=== PATIENT | male | born 1950 | race Caucasian/White ===

== ENCOUNTER 2016-11-18 18:11 | Emergency (ER) | payer MEDICARE, BC ==
[2016-11-18] MEDS ORDERED: ONDANSETRON 4 MG ORAL DISINTEGRATING TAB (S0181) As Ordered ONE (19:14)
[2016-11-18] MEDS ORDERED: PERCOCET 5MG/325MG TAB As Ordered ONE (19:14)
[2016-11-18] MEDS ORDERED: OXYCODONE/APAP 5MG/325MG(BULK) 1 TAB TAB As Ordered ONE (20:26)
--- NOTE | 2016-11-18 20:38 | EDDOCDS ---
Physician Documentation [facility] Name: Robby Saleh Age: 66 yrs Sex: Male : 1950 Arrival Date: 11/18/2016 Time: 18:11 Bed Private MD: Ashley Lambert Disposition: 11/18/16 20:22 Discharged to Home/Self Care. Impression: Nondisplaced fracture of left radial styloid process, Fall (on) (from) other stairs and steps, Contusion of left knee. - Condition is Stable. - Discharge Instructions: Cast or Splint Care, Wrist Fracture, Knee Pain. - Prescriptions for Percocet 5- 325 mg Oral Tablet - take 1 tablet by ORAL route every 6 hours As needed MDD: 4 tabs; 12 tablet. - Medication Reconciliation, Local Pharmacy Hours form. - Follow up: Emergency Department; When: As needed. Follow up: Ashley Lambert; When: Call to arrange an appointment; Reason: Wound/Symptom Recheck, Recheck today's complaints, Continuance of care. Follow up: [facility] ([facility]); When: Call to arrange an appointment; Reason: Wound/Symptom Recheck, Recheck today's complaints, Continuance of care. - Problem is new. - Symptoms have improved. Historical: - Allergies: no known allergies; - Home Meds: 1. atorvastatin 40 mg oral tab 1 tab nightly (Last dose: 11/17/2016) 2. Ramipril Unknown Oral 1 cap nightly (Last dose: 11/17/2016) 3. unknown blood thinner nightly (Last dose: 11/17/2016) 4. Vitamin D Oral nightly (Last dose: 11/17/2016) 5. vitamin E Oral nightly (Last dose: 11/17/2016) - PMHx: [place], 2012; Hypercholesterolemia; Hypertension; Pre Diabetic; - PSHx: Right knee replacement; Lithotripsy; Vasectomy; Left Hip Replacement; - Social history: Smoking status: Patient states was never smoker of tobacco. No barriers to communication noted. - Family history: Not pertinent. - : The pt / caregiver states he / she is on anticoagulants: unknonw Home medication list is obtained from the patient. - Exposure Risk Screening:: None identified. Vital Signs: 11/18 18:12 BP 158 / 101; Pulse 108; Resp 16; Temp 98.7; Pulse Ox 99% on R/A; Weight 99.79 kg / 220 elp lbs (R); Height 5 ft. 11 in. (180.34 cm) (R); Pain 8/10; 18:12 Body Mass Index 30.68 (99.79 kg, 180.34 cm) elp Procedures: 20:20 Fracture care/splinting: (Stabilizing Care) Splint applied to left wrist using katharine cc10 wrap, Orthoglass splint, applied by myself. Examined by me, post splint application: neurovascular intact, 2+ distal pulses palpable, brisk capillary refill noted, Patient tolerated well. MDM: 19:11 Ondansetron ODT Oral Disintegrating Tablet 4 mg PO once ordered. cc10 19:11 oxyCODONE-acetaminophen 5 mg-325 mg 1 tabs PO once ordered. cc10 19:12 Wrist, Complete Ordered. EDMS 19:12 Knee, Complete Ordered. EDMS 19:12 Hip, (AP/Lat) Ordered. EDMS 20:19 Knee Immobilizer ordered. cc10 20:19 oxyCODONE-acetaminophen 4 pack 5 mg-325 mg 1 packets PO once; Dispense with pt, take as cc10 per instruction on package ordered. 20:20 Misc. Nursing Order ordered. cc10 Administered Medications: 19:17 Drug: Ondansetron ODT 4 mg [ondansetron 4 mg disintegrating tablet (1 tabs)] Route: PO; cz 19:17 Drug: oxyCODONE-acetaminophen 1 tabs [oxycodone-acetaminophen 5 mg-325 mg tablet (1 cz tabs)] Route: PO; 20:36 Drug: oxyCODONE-acetaminophen 4 pack 1 packets [oxycodone-acetaminophen 5 mg-325 mg cjh tablet (1 tabs)] {Co-Signature: ms18 (Rea Johnson RN).} Route: PO; Signatures: Dispatcher [employer] EDMS Grzegorz Bobby RN RN cz Hafner, Jane, RN RN Travis Lockhart PADeonC PADeonC cc10 Rea Johnson RN ms18 MTDD
--- NOTE | 2016-11-18 20:38 | EDDOCDS ---
Nurse's Notes [facility] Name: Robby Saleh Age: 66 yrs Sex: Male : 1950 Arrival Date: 11/18/2016 Time: 18:11 Bed PR Private MD: Ashley Lambert Diagnosis: Fall (on) (from) other stairs and steps;Nondisplaced fracture of left radial styloid process;Contusion of left knee Presentation: 11/18 18:20 Presenting complaint: Patient states: tripped on stairs and hyperextended left knee, cj sprained right ankle, and hurt left wrist, and worried about left hip which was replaced two years ago. Adult Sepsis Screening: The patient does not have new or worsening altered mentation. Patient's respiratory rate is less than 22. Systolic blood pressure is greater than 100. Patient has a qSOFA score of 0- Negative Sepsis Screen. Suicide/Homicide risk assessment- the patient denies having any suicidal and/or homicidal ideations and does not present with any other emotional, behavioral or mental health complaints. Status: Patient is not a medical service technician or dependent. Transition of care: patient was not received from another setting of care. 18:20 Acuity: OLU Level 4 [facility] 18:20 Method Of Arrival: Walkin/Carried/Asstd [facility] Triage Assessment: 18:29 General: Appears in no apparent distress, comfortable, Behavior is appropriate for age, [facility] cooperative. Pain: Location: left knee Pain currently is 8 out of 10 on a pain scale. Respiratory: Airway is patent Respiratory effort is even, unlabored, Respiratory pattern is regular, symmetrical. Musculoskeletal: Range of motion limited in left knee. Historical: - Allergies: no known allergies; - Home Meds: 1. atorvastatin 40 mg oral tab 1 tab nightly (Last dose: 11/17/2016) 2. Ramipril Unknown Oral 1 cap nightly (Last dose: 11/17/2016) 3. unknown blood thinner nightly (Last dose: 11/17/2016) 4. Vitamin D Oral nightly (Last dose: 11/17/2016) 5. vitamin E Oral nightly (Last dose: 11/17/2016) - PMHx: [place], 2012; Hypercholesterolemia; Hypertension; Pre Diabetic; - PSHx: Right knee replacement; Lithotripsy; Vasectomy; Left Hip Replacement; - Social history: Smoking status: Patient states was never smoker of tobacco. No barriers to communication noted. - Family history: Not pertinent. - : The pt / caregiver states he / she is on anticoagulants: unknonw Home medication list is obtained from the patient. - Exposure Risk Screening:: None identified. Screenin:20 Screening information is obtained from the patient. Fall risk: No risks identified. cz Assistance ADL's: requires no assistance with activities of daily living. Abuse/DV Screen: The patient / caregiver reports he/she is: not in a situation that causes fear, pain or injury. Nutritional screening: No deficits noted. home support is adequate. 20:34 Advance Directives: There is no active DNR order. [facility] Assessment: 19:18 General: alert male with left side wrist knee and hip pain s/p fall. Musculoskeletal: cz Reports. 20:34 General: Appears in no apparent distress, comfortable, Behavior is appropriate for age, cj cooperative. Pain: Location: left leg. Neurological: Level of Consciousness is awake, alert, Oriented to person, place, time. Respiratory: No deficits noted. Derm: Skin is pink, warm & dry. Musculoskeletal: knee immobilizer applied to left knee. Vital Signs: 18:12 BP 158 / 101; Pulse 108; Resp 16; Temp 98.7; Pulse Ox 99% on R/A; Weight 99.79 kg (R); elp Height 5 ft. 11 in. (180.34 cm) (R); Pain 8/10; 18:12 Body Mass Index 30.68 (99.79 kg, 180.34 cm) [facility] Vitals: 18:12 Log In Time: November 18, 2016 at 18:10. [facility] ED Course: 18:12 Patient visited by Perla Alonzo PCA. elp 18:12 Ashley Lambert is Private Physician. elp 18:12 Patient moved to Waiting elp 18:14 Patient visited by Perla Alonzo PCA. elp 18:14 Patient moved to Pre RCE elp 18:22 Triage Initiated [facility] 18:30 Affected limb iced. Affected limb elevated. [facility] 18:44 Patient moved to Triage 1 ld5 19:05 Travis Ulrich [facility] cc10 19:05 Caleb Aly DO is Attending Physician. cc10 19:05 Patient visited by Travis Ulrich PA-C. cc10 19:05 Patient visited by Travis Ulrich PA-C. cc10 19:17 Patient moved to TR8 cz 19:19 Patient moved to TR1 jb5 19:20 The patient / caregiver is instructed regarding the plan of care and ED course. cz 19:20 No IV's were initiated during this patient's visit. No procedures done that require cz assistance. 19:36 Patient moved to PR2 / 26 cz 20:04 Patient visited by Val Degroot PCA. jb5 20:21 Ashley Lambert is Referral Physician. cc10 20:21 [facility] ([facility]) is Referral Physician. cc10 Administered Medications: 19:17 Drug: Ondansetron ODT 4 mg [ondansetron 4 mg disintegrating tablet (1 tabs)] Route: PO; cz 19:17 Drug: oxyCODONE-acetaminophen 1 tabs [oxycodone-acetaminophen 5 mg-325 mg tablet (1 cz tabs)] Route: PO; 20:36 Drug: oxyCODONE-acetaminophen 4 pack 1 packets [oxycodone-acetaminophen 5 mg-325 mg cjh tablet (1 tabs)] {Co-Signature: ms18 (Rea Johnson RN).} Route: PO; Order Results: There are currently no results for this order. Outcome: 20:22 Discharge ordered by Provider. cc10 20:34 Discharge Assessment: Patient awake, alert and oriented x 3. No cognitive and/or [facility] functional deficits noted. Patient verbalized understanding of disposition instructions. patient administered narcotics - no. The following High Risk Discharge criteria are identified: None. Discharged to home via wheelchair. Condition: good Condition: stable Condition: improved. Discharge instructions given to patient, Instructed on discharge instructions, follow up and referral plans. medication usage, no driving heavy equipment, Rest, Ice, Compression and Elevation. crutch walking, no drinking with medication, Demonstrated understanding of instructions, crutch walking, medications, Pt was receptive of discharge instructions/ teaching. Prescriptions given X 1. No special radiology studies were completed. Property :Personal belongings accompany Pt. 20:37 Patient left the ED. [facility] Signatures: Grzegorz Bobby, RN RN Val Hickey, EMERGENCY WORKER EMERGENCY WORKER jb5 Fiona Millan,RN RN ld5 Leilani Majano,RN RN [facility] Perla Alonzo, EMERGENCY WORKER EMERGENCY WORKER elp Travis Ulrich, PA-C PA-C cc10 Rea Johnson RN ms18 MTDD
--- NOTE | 2016-11-19 07:35 | REP ---
Left wrist series: Four views. History: Trauma. Findings: There is diffuse osteopenia. There is advanced chronic arthropathy at the wrist with narrowing of the articulation between the capitate and the lunate and marked narrowing of the radioscaphoid articulation. There is widening of the navicular lunate articulation indicating disruption of the navicular lunate ligament. There may be subluxation of the lunate relative to the capitate. In addition, there is erosion of the articular surface of the distal radius with impingement of the navicular bone into the eroded surface of the distal radius. These changes do not appear acute. However, there is an acute appearing disruption of the radial styloid articular margin cortex which may be a nondisplaced fracture. Vascular calcification is seen. There is a small erosion in the distal tip of the ulnar styloid. Impression: 1. 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 2. Question intra-articular nondisplaced fracture of the radial styloid. Diffuse osteoporosis is also noted. Signed by Jatin Mcintosh MD 11/19/2016 08:46 A
--- NOTE | 2016-11-19 07:35 | REP ---
Left hip: Three views. History: Trauma. Findings: Three views of the left hip demonstrate a left hip arthroplasty in position. No fracture or subluxation is seen. There is some soft tissue calcification in the proximal thigh laterally. Impression: Status post left hip arthroplasty. No fracture seen. Signed by Jatin Mcintosh MD 11/19/2016 08:47 A
--- NOTE | 2016-11-19 07:36 | REP ---
Left knee series: Five views. History: Trauma. Findings: Comparison left knee radiographs are from May 10, 2010. There is diffuse osteopenia. Advanced three compartment osteoarthritis is seen. Multiple osteocartilaginous loose bodies are noted at the anterior and posterior joint line. These findings are unchanged. There is evidence of a large joint effusion. No fracture is seen. Impression: No fracture noted. Advanced three compartment osteoarthritis with multiple osteocartilaginous loose bodies and large joint effusion. Diffuse osteoporosis. Signed by Jatin Mcintosh MD 11/19/2016 08:47 A
--- NOTE | 2016-11-22 09:50 | EDDOCDS ---
Physician Documentation [facility] Name: Robby Saleh Age: 66 yrs Sex: Male : 1950 Arrival Date: 11/18/2016 Time: 18:11 Bed Private MD: Ashley Lambert Disposition: 11/18/16 20:22 Discharged to Home/Self Care. Impression: Nondisplaced fracture of left radial styloid process, Fall (on) (from) other stairs and steps, Contusion of left knee. - Condition is Stable. - Discharge Instructions: Cast or Splint Care, Wrist Fracture, Knee Pain. - Prescriptions for Percocet 5- 325 mg Oral Tablet - take 1 tablet by ORAL route every 6 hours As needed MDD: 4 tabs; 12 tablet. - Medication Reconciliation, Local Pharmacy Hours form. - Follow up: Emergency Department; When: As needed. Follow up: Ashley Lambert; When: Call to arrange an appointment; Reason: Wound/Symptom Recheck, Recheck today's complaints, Continuance of care. Follow up: [facility] ([facility]); When: Call to arrange an appointment; Reason: Wound/Symptom Recheck, Recheck today's complaints, Continuance of care. - Problem is new. - Symptoms have improved. Historical: - Allergies: no known allergies; - Home Meds: 1. atorvastatin 40 mg oral tab 1 tab nightly (Last dose: 11/17/2016) 2. Ramipril Unknown Oral 1 cap nightly (Last dose: 11/17/2016) 3. unknown blood thinner nightly (Last dose: 11/17/2016) 4. Vitamin D Oral nightly (Last dose: 11/17/2016) 5. vitamin E Oral nightly (Last dose: 11/17/2016) - PMHx: [place], 2012; Hypercholesterolemia; Hypertension; Pre Diabetic; - PSHx: Right knee replacement; Lithotripsy; Vasectomy; Left Hip Replacement; - Social history: Smoking status: Patient states was never smoker of tobacco. No barriers to communication noted. - Family history: Not pertinent. - : The pt / caregiver states he / she is on anticoagulants: unknonw Home medication list is obtained from the patient. - Exposure Risk Screening:: None identified. Vital Signs: 11/18 18:12 BP 158 / 101; Pulse 108; Resp 16; Temp 98.7; Pulse Ox 99% on R/A; Weight 99.79 kg / 220 elp lbs (R); Height 5 ft. 11 in. (180.34 cm) (R); Pain 8/10; 18:12 Body Mass Index 30.68 (99.79 kg, 180.34 cm) elp Procedures: 20:20 Fracture care/splinting: (Stabilizing Care) Splint applied to left wrist using katharine cc10 wrap, Orthoglass splint, applied by myself. Examined by me, post splint application: neurovascular intact, 2+ distal pulses palpable, brisk capillary refill noted, Patient tolerated well. MDM: 19:11 Ondansetron ODT Oral Disintegrating Tablet 4 mg PO once ordered. cc10 19:11 oxyCODONE-acetaminophen 5 mg-325 mg 1 tabs PO once ordered. cc10 19:12 Wrist, Complete Ordered. EDMS 19:12 Knee, Complete Ordered. EDMS 19:12 Hip, (AP/Lat) Ordered. EDMS 20:19 Knee Immobilizer ordered. cc10 20:19 oxyCODONE-acetaminophen 4 pack 5 mg-325 mg 1 packets PO once; Dispense with pt, take as cc10 per instruction on package ordered. 20:20 Misc. Nursing Order ordered. cc10 20:56 [facility] Payment Agreement was scanned into [employer] and attached to record. jp5 20:56 Financial registration complete. jp5 11/19 08:32 T-Sheet-- Draft Copy was scanned into [employer] and attached to record. [facility] Administered Medications: 11/18 19:17 Drug: Ondansetron ODT 4 mg [ondansetron 4 mg disintegrating tablet (1 tabs)] Route: PO; cz 19:17 Drug: oxyCODONE-acetaminophen 1 tabs [oxycodone-acetaminophen 5 mg-325 mg tablet (1 cz tabs)] Route: PO; 20:36 Drug: oxyCODONE-acetaminophen 4 pack 1 packets [oxycodone-acetaminophen 5 mg-325 mg cjh tablet (1 tabs)] {Co-Signature: [id number] (Rea Johnson RN).} Route: PO; Signatures: Dispatcher MedHost EDMS Zecher, Grzegorz, RN RN Leilani JaraRN RN Travis Matthews PA-C PAAngie cc10 Halley Vu 5 Samreen Odonnell RN ms18 The chart was reviewed and I authenticate all verbal orders and agree with the evaluation and treatment provided.Attachments: 20:56 [facility] Payment Agreement jp5 11/19 08:32 T-Sheet-- Draft Copy [facility] Chart Complete MTDD
--- NOTE | 2016-11-22 09:50 | EDDOCDS ---
Physician Documentation [facility] Name: Robby Saleh Age: 66 yrs Sex: Male : 1950 Arrival Date: 11/18/2016 Time: 18:11 Bed Private MD: Ashley Lambert Disposition: 11/18/16 20:22 Discharged to Home/Self Care. Impression: Nondisplaced fracture of left radial styloid process, Fall (on) (from) other stairs and steps, Contusion of left knee. - Condition is Stable. - Discharge Instructions: Cast or Splint Care, Wrist Fracture, Knee Pain. - Prescriptions for Percocet 5- 325 mg Oral Tablet - take 1 tablet by ORAL route every 6 hours As needed MDD: 4 tabs; 12 tablet. - Medication Reconciliation, Local Pharmacy Hours form. - Follow up: Emergency Department; When: As needed. Follow up: Ashley Lambert; When: Call to arrange an appointment; Reason: Wound/Symptom Recheck, Recheck today's complaints, Continuance of care. Follow up: [facility] ([facility]); When: Call to arrange an appointment; Reason: Wound/Symptom Recheck, Recheck today's complaints, Continuance of care. - Problem is new. - Symptoms have improved. Historical: - Allergies: no known allergies; - Home Meds: 1. atorvastatin 40 mg oral tab 1 tab nightly (Last dose: 11/17/2016) 2. Ramipril Unknown Oral 1 cap nightly (Last dose: 11/17/2016) 3. unknown blood thinner nightly (Last dose: 11/17/2016) 4. Vitamin D Oral nightly (Last dose: 11/17/2016) 5. vitamin E Oral nightly (Last dose: 11/17/2016) - PMHx: [place], 2012; Hypercholesterolemia; Hypertension; Pre Diabetic; - PSHx: Right knee replacement; Lithotripsy; Vasectomy; Left Hip Replacement; - Social history: Smoking status: Patient states was never smoker of tobacco. No barriers to communication noted. - Family history: Not pertinent. - : The pt / caregiver states he / she is on anticoagulants: unknonw Home medication list is obtained from the patient. - Exposure Risk Screening:: None identified. Vital Signs: 11/18 18:12 BP 158 / 101; Pulse 108; Resp 16; Temp 98.7; Pulse Ox 99% on R/A; Weight 99.79 kg / 220 elp lbs (R); Height 5 ft. 11 in. (180.34 cm) (R); Pain 8/10; 18:12 Body Mass Index 30.68 (99.79 kg, 180.34 cm) elp Procedures: 20:20 Fracture care/splinting: (Stabilizing Care) Splint applied to left wrist using katharine cc10 wrap, Orthoglass splint, applied by myself. Examined by me, post splint application: neurovascular intact, 2+ distal pulses palpable, brisk capillary refill noted, Patient tolerated well. MDM: 19:11 Ondansetron ODT Oral Disintegrating Tablet 4 mg PO once ordered. cc10 19:11 oxyCODONE-acetaminophen 5 mg-325 mg 1 tabs PO once ordered. cc10 19:12 Wrist, Complete Ordered. EDMS 19:12 Knee, Complete Ordered. EDMS 19:12 Hip, (AP/Lat) Ordered. EDMS 20:19 Knee Immobilizer ordered. cc10 20:19 oxyCODONE-acetaminophen 4 pack 5 mg-325 mg 1 packets PO once; Dispense with pt, take as cc10 per instruction on package ordered. 20:20 Misc. Nursing Order ordered. cc10 20:56 [facility] Payment Agreement was scanned into [employer] and attached to record. jp5 20:56 Financial registration complete. jp5 11/19 08:32 T-Sheet-- Draft Copy was scanned into [employer] and attached to record. [facility] Administered Medications: 11/18 19:17 Drug: Ondansetron ODT 4 mg [ondansetron 4 mg disintegrating tablet (1 tabs)] Route: PO; cz 19:17 Drug: oxyCODONE-acetaminophen 1 tabs [oxycodone-acetaminophen 5 mg-325 mg tablet (1 cz tabs)] Route: PO; 20:36 Drug: oxyCODONE-acetaminophen 4 pack 1 packets [oxycodone-acetaminophen 5 mg-325 mg cjh tablet (1 tabs)] {Co-Signature: [id number] (Rea Johnson RN).} Route: PO; Signatures: Dispatcher [employer] EDMS Zecher, Rgzegorz, RN RN Leilani JaraRN RN Travis Matthews PA-C PAAngie cc10 Halley Vu 5 Samreen Odonnell RN ms18 The chart was reviewed and I authenticate all verbal orders and agree with the evaluation and treatment provided.Attachments: 20:56 [facility] Payment Agreement jp5 11/19 08:32 T-Sheet-- Draft Copy [facility] Chart Complete MTDD
--- NOTE | 2016-11-22 09:50 | EDDOCDS ---
Nurse's Notes [facility] Name: Robby Saleh Age: 66 yrs Sex: Male : 1950 Arrival Date: 11/18/2016 Time: 18:11 Bed PR Private MD: Ashley Lambert Diagnosis: Fall (on) (from) other stairs and steps;Nondisplaced fracture of left radial styloid process;Contusion of left knee Presentation: 11/18 18:20 Presenting complaint: Patient states: tripped on stairs and hyperextended left knee, cj sprained right ankle, and hurt left wrist, and worried about left hip which was replaced two years ago. Adult Sepsis Screening: The patient does not have new or worsening altered mentation. Patient's respiratory rate is less than 22. Systolic blood pressure is greater than 100. Patient has a qSOFA score of 0- Negative Sepsis Screen. Suicide/Homicide risk assessment- the patient denies having any suicidal and/or homicidal ideations and does not present with any other emotional, behavioral or mental health complaints. Status: Patient is not a dietary service aide or dependent. Transition of care: patient was not received from another setting of care. 18:20 Acuity: OLU Level 4 [facility] 18:20 Method Of Arrival: Walkin/Carried/Asstd [facility] Triage Assessment: 18:29 General: Appears in no apparent distress, comfortable, Behavior is appropriate for age, [facility] cooperative. Pain: Location: left knee Pain currently is 8 out of 10 on a pain scale. Respiratory: Airway is patent Respiratory effort is even, unlabored, Respiratory pattern is regular, symmetrical. Musculoskeletal: Range of motion limited in left knee. Historical: - Allergies: no known allergies; - Home Meds: 1. atorvastatin 40 mg oral tab 1 tab nightly (Last dose: 11/17/2016) 2. Ramipril Unknown Oral 1 cap nightly (Last dose: 11/17/2016) 3. unknown blood thinner nightly (Last dose: 11/17/2016) 4. Vitamin D Oral nightly (Last dose: 11/17/2016) 5. vitamin E Oral nightly (Last dose: 11/17/2016) - PMHx: [place], 2012; Hypercholesterolemia; Hypertension; Pre Diabetic; - PSHx: Right knee replacement; Lithotripsy; Vasectomy; Left Hip Replacement; - Social history: Smoking status: Patient states was never smoker of tobacco. No barriers to communication noted. - Family history: Not pertinent. - : The pt / caregiver states he / she is on anticoagulants: unknonw Home medication list is obtained from the patient. - Exposure Risk Screening:: None identified. Screenin:20 Screening information is obtained from the patient. Fall risk: No risks identified. cz Assistance ADL's: requires no assistance with activities of daily living. Abuse/DV Screen: The patient / caregiver reports he/she is: not in a situation that causes fear, pain or injury. Nutritional screening: No deficits noted. home support is adequate. 20:34 Advance Directives: There is no active DNR order. [facility] Assessment: 19:18 General: alert male with left side wrist knee and hip pain s/p fall. Musculoskeletal: cz Reports. 20:34 General: Appears in no apparent distress, comfortable, Behavior is appropriate for age, cj cooperative. Pain: Location: left leg. Neurological: Level of Consciousness is awake, alert, Oriented to person, place, time. Respiratory: No deficits noted. Derm: Skin is pink, warm & dry. Musculoskeletal: knee immobilizer applied to left knee. Vital Signs: 18:12 BP 158 / 101; Pulse 108; Resp 16; Temp 98.7; Pulse Ox 99% on R/A; Weight 99.79 kg (R); elp Height 5 ft. 11 in. (180.34 cm) (R); Pain 8/10; 18:12 Body Mass Index 30.68 (99.79 kg, 180.34 cm) [facility] Vitals: 18:12 Log In Time: November 18, 2016 at 18:10. [facility] ED Course: 18:12 Patient visited by Perla Alonzo PCA. elp 18:12 Ashley Lambert is Private Physician. elp 18:12 Patient moved to Waiting elp 18:14 Patient visited by Perla Alonzo PCA. elp 18:14 Patient moved to Pre RCE elp 18:22 Triage Initiated [facility] 18:30 Affected limb iced. Affected limb elevated. [facility] 18:44 Patient moved to Triage 1 ld5 19:05 [facility] cc[facility] 19:05 Caleb Aly DO is Attending Physician. cc10 19:05 Patient visited by Travis Ulrich PA-C. cc10 19:05 Patient visited by Travis Ulrich PA-C. cc10 19:17 Patient moved to TR8 cz 19:19 Patient moved to TR1 jb5 19:20 The patient / caregiver is instructed regarding the plan of care and ED course. cz 19:20 No IV's were initiated during this patient's visit. No procedures done that require cz assistance. 19:36 Patient moved to PR2 / 26 cz 20:04 Patient visited by Val Degroot PCA. jb5 20:21 Ashley Lambert is Referral Physician. cc10 20:21 [facility] ([facility]) is Referral Physician. cc10 20:56 [facility] Payment Agreement was scanned into student[employer] and attached to record. jp5 11/19 07:36 Wrist, Complete Returned. EDMS 07:36 Hip, (AP/Lat) Returned. EDMS 07:36 Knee, Complete Returned. EDMS 08:32 T-Sheet-- Draft Copy was scanned into student[employer] and attached to record. seh Administered Medications: 11/18 19:17 Drug: Ondansetron ODT 4 mg [ondansetron 4 mg disintegrating tablet (1 tabs)] Route: PO; cz 19:17 Drug: oxyCODONE-acetaminophen 1 tabs [oxycodone-acetaminophen 5 mg-325 mg tablet (1 cz tabs)] Route: PO; 20:36 Drug: oxyCODONE-acetaminophen 4 pack 1 packets [oxycodone-acetaminophen 5 mg-325 mg cjh tablet (1 tabs)] {Co-Signature: [id number] (Rea Johnson RN).} Route: PO; Order Results: Radiology Order: Wrist, Complete Test: Wrist, Complete REASON FOR EXAMINATION: Trauma; Left wrist series: Four views.; ; History: Trauma.; ; Findings: There is diffuse osteopenia. There is advanced chronic arthropathy at; the wrist with narrowing of the articulation between the capitate and the lunate; and marked narrowing of the radioscaphoid articulation. There is widening of the; navicular lunate articulation indicating disruption of the navicular lunate; ligament. There may be subluxation of the lunate relative to the capitate. In; addition, there is erosion of the articular surface of the distal radius with; impingement of the navicular bone into the eroded surface of the distal radius.; These changes do not appear acute. However, there is an acute appearing; disruption of the radial styloid articular margin cortex which may be a; nondisplaced fracture. Vascular calcification is seen. There is a small erosion; in the distal tip of the ulnar styloid.; ; Impression:; ; 1. Advanced chronic arthropathy with carpal collapse and erosion of the distal; radius.; ; 2. Question intra-articular nondisplaced fracture of the radial styloid.; Diffuse osteoporosis is also noted.; ; ; Signed by; Jatin Mcintosh MD 11/19/2016 08:46 A; Radiology Order: Knee, Complete Test: Knee, Complete REASON FOR EXAMINATION: Trauma; Left knee series: Five views.; ; History: Trauma.; ; Findings: Comparison left knee radiographs are from May 10, 2010. There is; diffuse osteopenia. Advanced three compartment osteoarthritis is seen. Multiple; osteocartilaginous loose bodies are noted at the anterior and posterior joint; line. These findings are unchanged. There is evidence of a large joint; effusion. No fracture is seen.; ; Impression:; ; No fracture noted. Advanced three compartment osteoarthritis with multiple; osteocartilaginous loose bodies and large joint effusion. Diffuse osteoporosis.; ; ; Signed by; Jatin Mcintosh MD 11/19/2016 08:47 A; Radiology Order: Hip, (AP/Lat) Test: Hip, (AP/Lat) REASON FOR EXAMINATION: Trauma; Left hip: Three views.; ; History: Trauma.; ; Findings: Three views of the left hip demonstrate a left hip arthroplasty in; position. No fracture or subluxation is seen. There is some soft tissue; calcification in the proximal thigh laterally.; ; Impression:; ; Status post left hip arthroplasty. No fracture seen.; ; ; Signed by; Jatin Mcintosh MD 11/19/2016 08:47 A; Outcome: 20:22 Discharge ordered by Provider. cc10 20:34 Discharge Assessment: Patient awake, alert and oriented x 3. No cognitive and/or cjh functional deficits noted. Patient verbalized understanding of disposition instructions. patient administered narcotics - no. The following High Risk Discharge criteria are identified: None. Discharged to home via wheelchair. Condition: good Condition: stable Condition: improved. Discharge instructions given to patient, Instructed on discharge instructions, follow up and referral plans. medication usage, no driving heavy equipment, Rest, Ice, Compression and Elevation. crutch walking, no drinking with medication, Demonstrated understanding of instructions, crutch walking, medications, Pt was receptive of discharge instructions/ teaching. Prescriptions given X 1. No special radiology studies were completed. Property :Personal belongings accompany Pt. 20:37 Patient left the ED. [facility] Signatures: Dispatcher [employer] EDMS Grzegorz Bobby, RN RN Val Hickey, SAP BUSINESS ANALYST SAP BUSINESS ANALYST jb5 Fiona Millan RN RN [email or web address] Leilani MajanoRN RN [facility] Perla Alonzo, SAP BUSINESS ANALYST SAP BUSINESS ANALYST melindap Travis Ulrich, PA-C PA-C cc10 Halley Vu Sarah seh Mallory Smith RN [id number] Chart Complete [facility]
== END 2016-11-18 20:37 | disposition home or self-care (01) ==
LOC: M ED 18:11
DX: S52.515A Nondisplaced fracture of left radial styloid process, initial encounter for closed fracture (principal); S80.02XA Contusion of left knee, initial encounter; W10.9XXA Fall (on) (from) unspecified stairs and steps, initial encounter; Y92.019 Unspecified place in single-family (private) house as the place of occurrence of the external cause; Y93.9 Activity, unspecified; Y99.9 Unspecified external cause status; I25.2 Old myocardial infarction; E78.00 Pure hypercholesterolemia, unspecified; I10 Essential (primary) hypertension; R73.09 Other abnormal glucose; Z96.651 Presence of right artificial knee joint; Z96.642 Presence of left artificial hip joint; Z79.899 Other long term (current) drug therapy; Z79.01 Long term (current) use of anticoagulants

== ENCOUNTER → 2016-12-27 | Outpatient (REF) | payer MEDICARE, BC ==
[2016-12-27 09:50] LABS: MEAN CORPUSCULAR HEMOGLOBIN 31.7 pg (27.0-33.0); MEAN CORPUSCULAR HGB CONC 35.3 g/dl (32.0-36.5); MEAN CORPUSCULAR VOLUME 89.8 fl (80.0-96.0); RED CELL DISTRIBUTION WIDTH 12.6 % (11.5-14.5); WHITE BLOOD COUNT 6.8 K/mm3 (4.0-10.0)
== END ==
LOC: M LAB REF 09:37
PROVIDERS: ATTEND Family Medicine
DX: G44.209 Tension-type headache, unspecified, not intractable (principal)

== ENCOUNTER → 2018-09-20 | Outpatient (CLI) | payer MEDICARE ==
[2018-09-20 06:51] LABS: HEMATOCRIT 45.2 % (42.0-52.0); HEMOGLOBIN 15.7 g/dl (13.5-17.5); MEAN CORPUSCULAR HEMOGLOBIN 31.5 pg (27.0-33.0); MEAN CORPUSCULAR HGB CONC 34.7 g/dl (32.0-36.5); MEAN CORPUSCULAR VOLUME 90.6 fl (80.0-96.0); PLATELET COUNT, AUTOMATED 180 10^3/uL (150-450); RED BLOOD COUNT 4.99 10^6/uL (4.30-6.10); WHITE BLOOD COUNT 5.9 10^3/uL (4.0-10.0)
[2018-09-20 07:09] LABS: ESTIMATED AVERAGE GLUCOSE 108 MG/DL (60-110); HEMOGLOBIN A1c 5.4 %
[2018-09-20 07:35] LABS: ALBUMIN 3.7 GM/DL (3.2-5.2); ALBUMIN/GLOBULIN RATIO 1.12 (1.00-1.93); ALKALINE PHOSPHATASE 70 U/L (45-117); ALT/SGPT 36 U/L (12-78); ANION GAP 4 MEQ/L (8-16); AST/SGOT 27 U/L (7-37); BILIRUBIN,TOTAL 0.7 MG/DL (0.2-1.0); BLOOD UREA NITROGEN 25 MG/DL (7-18); CALCIUM LEVEL 8.6 MG/DL (8.8-10.2); CARBON DIOXIDE LEVEL 30 MEQ/L (21-32); CHLORIDE LEVEL 107 MEQ/L (98-107); CHOLESTEROL LEVEL 147 MG/DL (<200); CREATININE FOR GFR 1.29 MG/DL (0.70-1.30); GLOMERULAR FILTRATION RATE 58.6 (>42); GLUCOSE, FASTING 109 MG/DL (70-100); HDL CHOLESTEROL 44 MG/DL (>40); LDL CHOLESTEROL 85 MG/DL (<100); NON-HDL-C 103 MG/DL; POTASSIUM SERUM 4.7 MEQ/L (3.5-5.1); PROSTATIC SPECIFIC AG MONITOR 0.54 NG/ML (< 4.0); SODIUM LEVEL 141 MEQ/L (136-145); TESTOSTERONE 297 NG/DL (241-827); TOTAL 25(OH) VITAMIN D 36.6 NG/ML (30.0-100.0); TRIGLYCERIDES LEVEL 92 MG/DL (<150)
== END ==
LOC: M LAB 06:12
DX: R53.83 Other fatigue (principal); I10 Essential (primary) hypertension; Z79.899 Other long term (current) drug therapy
CPT/HCPCS: 71046

== ENCOUNTER → 2019-05-11 | Outpatient (CLI) | payer MEDICARE ==
[2019-05-11 08:10] LABS: HEMATOCRIT 45.7 % (42.0-52.0); HEMOGLOBIN 15.9 g/dl (13.5-17.5); MEAN CORPUSCULAR HEMOGLOBIN 31.9 pg (27.0-33.0); MEAN CORPUSCULAR HGB CONC 34.8 g/dl (32.0-36.5); MEAN CORPUSCULAR VOLUME 91.8 fl (80.0-96.0); PLATELET COUNT, AUTOMATED 160 10^3/uL (150-450); RED BLOOD COUNT 4.98 10^6/uL (4.30-6.10); WHITE BLOOD COUNT 5.7 10^3/uL (4.0-10.0)
[2019-05-11 08:32] LABS: ALBUMIN 3.8 GM/DL (3.2-5.2); BILIRUBIN,TOTAL 0.6 MG/DL (0.2-1.0); CALCIUM LEVEL 8.8 MG/DL (8.8-10.2); CHOLESTEROL RISK RATIO 2.976 (<5); CREATININE FOR GFR 1.31 MG/DL (0.70-1.30); GLOMERULAR FILTRATION RATE 57.4 (>42); POTASSIUM SERUM 4.4 MEQ/L (3.5-5.1); PROSTATIC SPECIFIC AG MONITOR 0.88 NG/ML (< 4.00); THYROID STIMULATING HORMONE 1.07 uIU/ML (0.358-3.740); THYROXINE (T4) 8.9 UG/DL (4.5-12.0); TOTAL PROTEIN 7.1 GM/DL (6.4-8.2)
[2019-05-11 10:02] LABS: HEMOGLOBIN A1c 5.7 %
[2019-05-13 10:34] LABS: TOTAL T3 112.3 NG/DL (60.0-181.0)
== END ==
LOC: M LAB 07:14
PROVIDERS: ATTEND Family Medicine
DX: I10 Essential (primary) hypertension (principal); N40.0 Benign prostatic hyperplasia without lower urinary tract symptoms; E03.9 Hypothyroidism, unspecified; E11.9 Type 2 diabetes mellitus without complications

== ENCOUNTER → 2019-08-11 | Outpatient (CLI) | payer MEDICARE | LOC: M LAB 08:07 | PROVIDERS: ATTEND Ophthalmology | DX: M31.6 Other giant cell arteritis (principal) ==

== ENCOUNTER → 2019-10-28 | Outpatient (CLI) | payer MEDICARE ==
[2019-10-28 07:16] LABS: PROSTATIC SPECIFIC AG MONITOR 0.92 NG/ML (< 4.00)
== END ==
LOC: M LAB 06:18
PROVIDERS: ATTEND Family Medicine
DX: E29.1 Testicular hypofunction (principal)

== ENCOUNTER → 2020-04-25 | Outpatient (CLI) | payer MEDICARE ==
[2020-04-25 10:56] LABS: HEMATOCRIT 47.8 % (42.0-52.0); HEMOGLOBIN 16.3 g/dl (13.5-17.5); MEAN CORPUSCULAR HEMOGLOBIN 30.6 pg (27.0-33.0); MEAN CORPUSCULAR HGB CONC 34.1 g/dl (32.0-36.5); MEAN CORPUSCULAR VOLUME 89.7 fl (80.0-96.0); PLATELET COUNT, AUTOMATED 180 10^3/uL (150-450); RED BLOOD COUNT 5.33 10^6/uL (4.30-6.10); WHITE BLOOD COUNT 6.9 10^3/uL (4.0-10.0)
[2020-04-25 11:24] LABS: HEMOGLOBIN A1c 5.7 %
[2020-04-25 11:33] LABS: ALBUMIN 3.9 GM/DL (3.2-5.2); BILIRUBIN,TOTAL 0.5 MG/DL (0.2-1.0); CALCIUM LEVEL 8.8 MG/DL (8.8-10.2); CHOLESTEROL RISK RATIO 4.622 (<5); CREATININE FOR GFR 1.33 MG/DL (0.70-1.30); GLOMERULAR FILTRATION RATE 56.3 (>42); PROSTATIC SPECIFIC AG MONITOR 0.52 NG/ML (< 4.00); THYROID STIMULATING HORMONE 1.02 uIU/ML (0.358-3.740); TOTAL PROTEIN 7.5 GM/DL (6.4-8.2)
[2020-04-27 11:38] LABS: TOTAL 25(OH) VITAMIN D 29.4 NG/ML (30.0-100.0)
== END ==
LOC: M LAB 10:31
PROVIDERS: ATTEND Family Medicine
DX: R53.83 Other fatigue (principal); I10 Essential (primary) hypertension; E03.9 Hypothyroidism, unspecified

== ENCOUNTER → 2020-09-13 | Outpatient (CLI) | payer MEDICARE ==
[2020-09-13 09:32] LABS: HEMATOCRIT 49.2 % (42.0-52.0); HEMOGLOBIN 16.1 g/dl (13.5-17.5); MEAN CORPUSCULAR HGB CONC 32.7 g/dl (32.0-36.5); MEAN CORPUSCULAR VOLUME 85.4 fl (80.0-96.0); PLATELET COUNT, AUTOMATED 190 10^3/uL (150-450); RED BLOOD COUNT 5.76 10^6/uL (4.30-6.10); WHITE BLOOD COUNT 6.6 10^3/uL (4.0-10.0)
--- NOTE | 2020-09-13 09:36 | ECGEPIP ---
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 Nonspecific ST/T wave abnormalities minimally changed from 09/20/18 Electronically Signed on 09-13-2020 9:35:44 EST by Kali Cohen
[2020-09-13 09:42] LABS: INR 1.01; PROTHROMBIN TIME 13.5 SECONDS (12.5-14.3)
--- NOTE | 2020-09-13 09:46 | REP ---
INDICATION: HTN. COMPARISON: Comparison chest x-ray September 20, 2018. TECHNIQUE: Two views.. FINDINGS: The lungs are well inflated and free of infiltrate. The pleural angles are sharp. The heart size is normal. Pulmonary vasculature is not increased. No significant bony abnormality is seen. Coronary artery stent material is visible overlying the heart on the lateral radiograph unchanged. Thoracic aorta is tortuous. There are degenerative changes in the thoracic spine. IMPRESSION: Status post coronary artery stenting. No acute disease.. <Electronically signed by Nasir Mcintosh > 09/13/20 [id number]
[2020-09-13 09:54] LABS: HEMOGLOBIN A1c 5.5 %
[2020-09-13 10:15] LABS: ALBUMIN 3.8 GM/DL (3.2-5.2); BILIRUBIN,TOTAL 0.8 MG/DL (0.2-1.0); CALCIUM LEVEL 8.6 MG/DL (8.8-10.2); CHOLESTEROL RISK RATIO 3.444 (<5); CREATININE FOR GFR 1.39 MG/DL (0.70-1.30); GLOMERULAR FILTRATION RATE 53.5 (>42); POTASSIUM SERUM 4.4 MEQ/L (3.5-5.1); PROSTATIC SPECIFIC AG MONITOR 1.08 NG/ML (< 4.00); THYROID STIMULATING HORMONE 1.4 uIU/ML (0.358-3.740); TOTAL PROTEIN 7.1 GM/DL (6.4-8.2)
== END ==
LOC: M LAB 08:44
PROVIDERS: ATTEND Family Medicine
DX: Z01.818 Encounter for other preprocedural examination (principal); R53.83 Other fatigue; I10 Essential (primary) hypertension; I25.2 Old myocardial infarction; R94.31 Abnormal electrocardiogram [ECG] [EKG]; Z95.5 Presence of coronary angioplasty implant and graft; M51.34 Other intervertebral disc degeneration, thoracic region

== ENCOUNTER → 2021-01-04 | Outpatient (CLI) | payer BC, MEDICARE ==
[2021-01-04 10:03] LABS: HEMATOCRIT 48.1 % (42.0-52.0); HEMOGLOBIN 16.1 g/dl (13.5-17.5); MEAN CORPUSCULAR HEMOGLOBIN 29.7 pg (27.0-33.0); MEAN CORPUSCULAR HGB CONC 33.5 g/dl (32.0-36.5); MEAN CORPUSCULAR VOLUME 88.6 fl (80.0-96.0); PLATELET COUNT, AUTOMATED 178 10^3/uL (150-450); RED BLOOD COUNT 5.43 10^6/uL (4.30-6.10); WHITE BLOOD COUNT 5.7 10^3/uL (4.0-10.0)
[2021-01-04 10:30] LABS: HEMOGLOBIN A1c 5.3 %
[2021-01-04 11:24] LABS: ALBUMIN 3.8 GM/DL (3.2-5.2); BILIRUBIN,TOTAL 0.7 MG/DL (0.2-1.0); CALCIUM LEVEL 8.6 MG/DL (8.8-10.2); CHOLESTEROL RISK RATIO 3.978 (<5); CREATININE FOR GFR 1.28 MG/DL (0.70-1.30); GLOMERULAR FILTRATION RATE 58.8 (>42); POTASSIUM SERUM 4.2 MEQ/L (3.5-5.1); PROSTATIC SPECIFIC AG MONITOR 0.87 NG/ML (< 4.00); THYROID STIMULATING HORMONE 1.2 uIU/ML (0.358-3.740)
== END ==
LOC: M LAB 08:30
PROVIDERS: ATTEND Family Medicine
DX: I10 Essential (primary) hypertension (principal); R53.82 Chronic fatigue, unspecified; E11.8 Type 2 diabetes mellitus with unspecified complications; N40.0 Benign prostatic hyperplasia without lower urinary tract symptoms

== ENCOUNTER → 2021-03-23 | Outpatient (CLI) | payer MEDICARE, SELFPAY ==
--- NOTE | 2021-03-23 08:38 | REP ---
INDICATION: HTN *LABS 1ST, EKG 2ND, XRY 3RD* COMPARISON: 09/13/2020 TECHNIQUE: PA and lateral. FINDINGS: The mediastinum and cardiac silhouette are normal. The lung anthony are clear and without acute consolidation, effusion, or pneumothorax. The skeletal structures are intact and normal. IMPRESSION: No acute cardiopulmonary process. <Electronically signed by Yuval Clemente > 03/23/21 0834
[2021-03-23 09:02] LABS: HEMATOCRIT 48.7 % (42.0-52.0); HEMOGLOBIN 15.9 g/dl (13.5-17.5); MEAN CORPUSCULAR HEMOGLOBIN 28.9 pg (27.0-33.0); MEAN CORPUSCULAR HGB CONC 32.6 g/dl (32.0-36.5); MEAN CORPUSCULAR VOLUME 88.4 fl (80.0-96.0); PLATELET COUNT, AUTOMATED 177 10^3/uL (150-450); RED BLOOD COUNT 5.51 10^6/uL (4.30-6.10); WHITE BLOOD COUNT 4.5 10^3/uL (4.0-10.0)
[2021-03-23 09:10] LABS: PROTHROMBIN TIME 13.4 SECONDS (12.5-14.3)
[2021-03-23 09:34] LABS: ALBUMIN 3.7 GM/DL (3.2-5.2); BILIRUBIN,TOTAL 0.7 MG/DL (0.2-1.0); CHOLESTEROL RISK RATIO 3.682 (<5); CREATININE FOR GFR 1.27 MG/DL (0.70-1.30); GLOMERULAR FILTRATION RATE 59.2 (>42); POTASSIUM SERUM 4.7 MEQ/L (3.5-5.1); PROSTATIC SPECIFIC AG MONITOR 0.98 NG/ML (< 4.00); THYROID STIMULATING HORMONE 1.16 uIU/ML (0.358-3.740); TOTAL PROTEIN 7.2 GM/DL (6.4-8.2)
[2021-03-23 09:53] LABS: HEMOGLOBIN A1c 5.2 %
--- NOTE | 2021-03-23 15:06 | ECGEPIP ---
[facility] Test Date: 2021-03-23 Pat Name: ANABELLE VILLARREAL Department: Room: - Gender: Male Front Clerk: zenaida : 1950 Requested By: Ashley Reis Order Number: [id number] Reading MD: Reuben Mondragon Measurements Intervals [place] Rate: 60 P: 63 FL: 156 QRS: 40 QRSD: 84 T: 45 QT: 396 QTc: 396 Interpretive Statements Normal sinus rhythm Possible Old Inferior infarct Nonspecific T wave abnormality. No significant change compared with 09/13/2020. Electronically Signed on 03-23-2021 15:06:23 EDT by Reuben Mondraogn
== END ==
LOC: M LAB 07:48
PROVIDERS: ATTEND Family Medicine
DX: I10 Essential (primary) hypertension (principal); Z01.818 Encounter for other preprocedural examination; R53.83 Other fatigue; E03.9 Hypothyroidism, unspecified; R94.31 Abnormal electrocardiogram [ECG] [EKG]; Z79.899 Other long term (current) drug therapy

== ENCOUNTER → 2021-06-23 | Outpatient (CLI) | payer MEDICARE ==
[2021-06-23 10:08] LABS: HEMATOCRIT 40.9 % (42.0-52.0); HEMOGLOBIN 13.5 g/dl (13.5-17.5); MEAN CORPUSCULAR HEMOGLOBIN 29.7 pg (27.0-33.0); MEAN CORPUSCULAR VOLUME 90.1 fl (80.0-96.0); PLATELET COUNT, AUTOMATED 279 10^3/uL (150-450); RED BLOOD COUNT 4.54 10^6/uL (4.30-6.10); WHITE BLOOD COUNT 5.6 10^3/uL (4.0-10.0)
[2021-06-23 10:41] LABS: ALBUMIN 3.4 GM/DL (3.2-5.2); ALT/SGPT 26 U/L (12-78); BILIRUBIN,TOTAL 0.5 MG/DL (0.2-1.0); BLOOD UREA NITROGEN 20 MG/DL (7-18); CALCIUM LEVEL 9.2 MG/DL (8.8-10.2); CARBON DIOXIDE LEVEL 29 MEQ/L (21-32); CHLORIDE LEVEL 109 MEQ/L (98-107); CHOLESTEROL LEVEL 161 MG/DL (<200); CHOLESTEROL RISK RATIO 3.833 (<5); CREATININE FOR GFR 1.01 MG/DL (0.70-1.30); GLOMERULAR FILTRATION RATE > 60.0 (>42); GLUCOSE, FASTING 111 MG/DL (70-100); HDL CHOLESTEROL 42 MG/DL (>40); LDL CHOLESTEROL 96 MG/DL (<100); NON-HDL-C 119 MG/DL; POTASSIUM SERUM 4.7 MEQ/L (3.5-5.1); PROSTATIC SPECIFIC AG MONITOR 0.65 NG/ML (< 4.00); SODIUM LEVEL 142 MEQ/L (136-145); THYROID STIMULATING HORMONE 0.824 uIU/ML (0.358-3.740); TRIGLYCERIDES LEVEL 113 MG/DL (<150)
[2021-06-23 10:55] LABS: HEMOGLOBIN A1c 5.3 %
== END ==
LOC: M LAB 09:36
PROVIDERS: ATTEND Family Medicine
DX: I10 Essential (primary) hypertension (principal); R53.83 Other fatigue; E03.9 Hypothyroidism, unspecified; Z79.899 Other long term (current) drug therapy

== ENCOUNTER → 2021-07-02 | Outpatient (CLI) | payer MEDICARE ==
--- NOTE | 2021-07-02 16:01 | REP ---
INDICATION: LT CAROTID BRUIT COMPARISON: None. TECHNIQUE: Real-time ultrasound evaluation and duplex Doppler interrogation of the extracranial carotid vasculature is performed. FINDINGS: There is moderate plaque in the right carotid bulb and proximal internal carotid artery with elevated peak systolic velocity, suggesting stenosis at that location 50-79%. Mild scattered plaquing and narrowing is noted in the left carotid bulb and internal carotid artery, luminal narrowing less than 50%. There is normal direction of flow in both vertebral arteries. RIGHT LEFT Peak systolic velocity ICA 149.6 cm/s 65.7 cm/s End diastolic velocity ICA 28.1 cm/s 20.4 cm/s Peak systolic velocity CCA 88.4 cm/s 87.1cm/s Peak systolic velocity ECA 68.6 cm/s 70.5 cm/s ICA/CCA ratio 1.69 0.75 IMPRESSION: Findings suggesting stenosis of the proximal right internal carotid artery 50-79%. Mild plaquing on the left with luminal narrowing of the left ICA less than 50%. <Electronically signed by Nain Lassiter > 07/02/21 [id number]
== END ==
LOC: M RAD 14:40
PROVIDERS: ATTEND Family Medicine
DX: R09.89 Other specified symptoms and signs involving the circulatory and respiratory systems (principal)

== ENCOUNTER 2021-08-05 06:27 | Emergency (ER) | payer MEDICARE ==
[~2021-08-05] VITALS: Ht 182.9 cm; Wt 86.4 kg
--- NOTE | 2021-08-05 07:04 | REPVR ---
PROCEDURE INFORMATION: Exam: XR Chest Exam date and time: 08/05/2021 6:32 AM Age: 71 years old Clinical indication: Other: Chest pain TECHNIQUE: Imaging protocol: XR of the chest. Views: 1 view. COMPARISON: CR Chest, 2 view PA, Lat 03/23/2021 8:20 AM FINDINGS: Lungs: Unremarkable. No consolidation. Pleural spaces: Unremarkable. No pleural effusion. No pneumothorax. Heart/Mediastinum: Unremarkable. No cardiomegaly. Bones/joints: Unremarkable. IMPRESSION: No acute findings. Electronically signed by: Lencho Hill On 08/05/2021 07:03:37 AM
[2021-08-05 07:27] LABS: BASO # 0.1 10^3/uL (0.0-0.2); BASO % 1.4 % (0.0-1.0); EOS # 0.2 10^3/uL (0.0-0.5); EOS % 3.5 % (0.0-3.0); HEMATOCRIT 43.3 % (42.0-52.0); HEMOGLOBIN 14.6 g/dl (13.5-17.5); LYMPH # 1.7 10^3/uL (1.5-5.0); LYMPH % 34.3 % (24.0-44.0); MEAN CORPUSCULAR HEMOGLOBIN 30.6 pg (27.0-33.0); MEAN CORPUSCULAR HGB CONC 33.7 g/dl (32.0-36.5); MEAN CORPUSCULAR VOLUME 90.8 fl (80.0-96.0); MONO # 0.4 10^3/uL (0.0-0.8); MONO % 7.9 % (2.0-8.0); NEUTROPHILS # 2.7 10^3/uL (1.5-8.5); NEUTROPHILS % 52.7 % (36.0-66.0); PLATELET COUNT, AUTOMATED 152 10^3/uL (150-450); RED BLOOD COUNT 4.77 10^6/uL (4.30-6.10); WHITE BLOOD COUNT 5.1 10^3/uL (4.0-10.0)
[2021-08-05 07:43] LABS: BLOOD UREA NITROGEN 23 MG/DL (7-18); CALCIUM LEVEL 8.8 MG/DL (8.8-10.2); CARBON DIOXIDE LEVEL 22 MEQ/L (21-32); CHLORIDE LEVEL 111 MEQ/L (98-107); GLOMERULAR FILTRATION RATE > 60.0 (>42); GLUCOSE, FASTING 104 MG/DL (70-100); POTASSIUM SERUM 5.1 MEQ/L (3.5-5.1); SODIUM LEVEL 141 MEQ/L (136-145)
[2021-08-05] MEDS ORDERED: ASPIRIN 81 MG CHEW TABLET PO ONE (07:55)
[2021-08-05] MEDS ORDERED: ISOVUE-370 76% 100ML VIAL As Ordered ONE (08:01)
[2021-08-05 08:12] LABS: ALBUMIN 3.4 GM/DL (3.2-5.2); ALT/SGPT 33 U/L (12-78); BILIRUBIN,DIRECT < 0.1 MG/DL (0.0-0.2); BILIRUBIN,TOTAL 0.6 MG/DL (0.2-1.0); CK-MB VALUE MASS 1.6 NG/ML (<3.6); CPK CREATINE PHOSPHOKINASE 175 U/L (39-308); LIPASE 79 U/L (73-393); MB/CK RELATIVE INDEX 0.91 (< OR =4); TROPONIN I < 0.02 NG/ML (< 0.10)
--- NOTE | 2021-08-05 08:31 | REP ---
INDICATION: chest pain. COMPARISON: None. TECHNIQUE: Imaging protocol: CT angiography of the chest with IV contrast. Contiguous 3 mm thick axial projection images were obtained through the chest. 2D sagittal and coronal reconstructions were performed. Radiation optimization: All CT scans at this facility use at least one of these dose optimization techniques: automated exposure control; mA and/or kV adjustment per patient size (includes targeted exams where dose is matched to clinical indication); or iterative reconstruction. CONTRAST: 75 cc of Isovue 370 IV. FINDINGS: Lower neck: The thyroid gland is mildly enlarged without discrete nodules. There is no supraclavicular lymphadenopathy. Mediastinum: No abnormal masses or lymphadenopathy. Heart/thoracic aorta/pulmonary arterial tree: The heart size is normal. There is a minimal pericardial effusion. There is calcific vascular disease of the thoracic aorta and coronary arteries. There is no evidence of thoracic aortic aneurysm or aortic dissection. There are no filling defects in the pulmonary arterial tree. Upper abdomen: There is calcific vascular disease of the abdominal aorta. There is an 8.6 cm in diameter cortical cyst in the upper pole of the right kidney with a mural calcification. Thoracic esophagus: Normal. Chest wall and axilla: The soft tissues of the chest wall appear normal. There is no axillary lymphadenopathy. There is moderate multilevel degenerative disc disease of the thoracic spine. Lung parenchyma: There is minimal posterior basilar gravity dependent atelectasis, bilaterally. There is no significant interstitial or alveolar lung disease. There are no pulmonary nodules. There are no pleural effusions. IMPRESSION: 1. No evidence of pulmonary emboli. 2. No significant lung disease. 3. Calcific vascular disease of the thoracoabdominal aorta and coronary arteries. 4. Large cortical cyst with a mural calcification in the right kidney, Bosniak 2. 5. Degenerative disc disease, thoracic spine. <Electronically signed by Topher Bajwa > 08/05/21 [id number]
--- NOTE | 2021-08-05 12:07 | ED PDOC ---
Post-Departure Follow-Up cta chest faxed to dr dominguez for fu Elke Barrera MD Aug 05, 2021 12:07
[2021-08-05 13:26] LABS: CK-MB VALUE MASS 1.6 NG/ML (<3.6); CPK CREATINE PHOSPHOKINASE 115 U/L (39-308); MB/CK RELATIVE INDEX 1.39 (< OR =4); TROPONIN I < 0.02 NG/ML (< 0.10)
[2021-08-05] MEDS ORDERED: METOPROLOL TART 25 MG TABLET PO ONE (14:15)
[2021-08-05] MEDS ORDERED: amLODIPine 5 MG TAB PO ONE (14:20)
[2021-08-05] MEDS ORDERED: PILL CUTTER 1 EACH XX ONE (14:21)
[2021-08-05 14:27] VITALS: BP 145/83
[2021-08-05 14:31] VITALS: BP 145/83
[2021-08-05] MEDS ORDERED: AMLO2.5T3 PO (14:37)
--- NOTE | 2021-08-06 00:11 | ECGEPIP ---
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
--- NOTE | 2021-08-06 00:14 | ECGEPIP ---
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
== END 2021-08-05 15:01 | disposition home or self-care (01) ==
LOC: M ED 06:27
DX: R07.9 Chest pain, unspecified (principal); E11.9 Type 2 diabetes mellitus without complications; I10 Essential (primary) hypertension; E07.9 Disorder of thyroid, unspecified; E78.5 Hyperlipidemia, unspecified; I25.2 Old myocardial infarction; Z79.899 Other long term (current) drug therapy
CPT/HCPCS: 36415; 71045; 71275; 80048; 80076; 82550; 82553; 83690; 84484; 85025; 93005; 93041; 94760; 99285; Q9967

== ENCOUNTER → 2021-08-25 | Outpatient (CLI) | payer MEDICARE ==
[~2021-08-25] MED LIST: AMLO2.5T3 PO
--- NOTE | 2021-08-25 15:35 | REP ---
INDICATION: CYST OF RT KIDNEY. COMPARISON: 07/10/2009 TECHNIQUE: Real-time sonographic evaluation of the kidneys FINDINGS: Multiple ultrasonographic images of the right kidney show the right kidney to measure 15.6 x 6.2 x 5.8 cm. The renal cortical echotexture is unremarkable. There are no solid masses. Once again, there is an anechoic structure seen arising from the superior pole which today measures 8.7 x 7.6 x 7.5 cm previously this measured 3.7 x 4.8 cm. In the inferior pole there is a 2.7 cm sized anechoic structure with a single thin septation. There is good corticomedullary differentiation. There is no hydronephrosis. There are no perinephric fluid collections. Multiple ultrasonographic images of the left kidney show the left kidney to measure 12 x 5.8 x 5.5 cm.. The renal cortical echotexture is unremarkable. There are no masses. There is good corticomedullary differentiation. There is no hydronephrosis. There are no perinephric fluid collections. IMPRESSION: The right renal cyst seen previously has enlarged as described above. There is an additional simple cyst in the inferior pole of the right kidney as described above. This represents a change. <Electronically signed by Gabo Royal > 08/25/21 [id number]
== END ==
LOC: M RAD 14:01
PROVIDERS: ATTEND Family Medicine
DX: N28.1 Cyst of kidney, acquired (principal)

== ENCOUNTER → 2021-09-19 | Outpatient (CLI) | payer MEDICARE ==
[2021-09-19 08:58] LABS: APPEARANCE, URINE CLEAR (CLEAR); BACTERIA, URINE AUTO NEGATIVE (NEGATIVE); BILIRUBIN, URINE AUTO NEGATIVE (NEGATIVE); BLOOD, URINE BLOOD NEGATIVE (NEGATIVE); COLOR, URINE YELLOW (YELLOW); GLUCOSE, URINE (UA) AUTO NEGATIVE (NEGATIVE); KETONE, URINE AUTO NEGATIVE (NEGATIVE); LEUKOCYTE ESTERASE, URINE AUTO NEGATIVE (NEGATIVE); NITRITE, URINE AUTO NEGATIVE (NEGATIVE); PROTEIN, URINE AUTO NEGATIVE (NEGATIVE); RBC, URINE AUTO 0 /HPF (0-3); SPECIFIC GRAVITY URINE AUTO 1.014 (1.002-1.035); SQUAMOUS EPITHELIAL CELL UR AU 0 /HPF (0-6); UROBILINOGEN, URINE AUTO 0.2 mg/dL (0.0-2.0); WBC, URINE AUTO 1 /HPF (0-3)
[2021-09-19 08:58] LABS: HEMATOCRIT 44.3 % (42.0-52.0); HEMOGLOBIN 15.3 g/dl (13.5-17.5); MEAN CORPUSCULAR HEMOGLOBIN 30.8 pg (27.0-33.0); MEAN CORPUSCULAR HGB CONC 34.5 g/dl (32.0-36.5); MEAN CORPUSCULAR VOLUME 89.1 fl (80.0-96.0); PLATELET COUNT, AUTOMATED 157 10^3/uL (150-450); RED BLOOD COUNT 4.97 10^6/uL (4.30-6.10); WHITE BLOOD COUNT 5.3 10^3/uL (4.0-10.0)
[2021-09-19 09:38] LABS: ALBUMIN 3.5 GM/DL (3.2-5.2); ALT/SGPT 33 U/L (12-78); BILIRUBIN,TOTAL 0.6 MG/DL (0.2-1.0); BLOOD UREA NITROGEN 16 MG/DL (7-18); CALCIUM LEVEL 9.2 MG/DL (8.8-10.2); CARBON DIOXIDE LEVEL 26 MEQ/L (21-32); CHLORIDE LEVEL 109 MEQ/L (98-107); CHOLESTEROL LEVEL 191 MG/DL (<200); GLOMERULAR FILTRATION RATE > 60.0 (>42); GLUCOSE, FASTING 100 MG/DL (70-100); HDL CHOLESTEROL 50 MG/DL (>40); LDL CHOLESTEROL 121 MG/DL (<100); NON-HDL-C 141 MG/DL; POTASSIUM SERUM 4.4 MEQ/L (3.5-5.1); PROSTATIC SPECIFIC AG MONITOR 0.35 NG/ML (< 4.00); SODIUM LEVEL 141 MEQ/L (136-145); THYROID STIMULATING HORMONE 0.902 uIU/ML (0.358-3.740); TRIGLYCERIDES LEVEL 102 MG/DL (<150)
== END ==
LOC: M LAB 08:22
PROVIDERS: ATTEND Family Medicine
DX: I10 Essential (primary) hypertension (principal)

== ENCOUNTER → 2021-11-23 | Outpatient (CLI) | payer MEDICARE ==
[2021-11-23 08:44] LABS: THYROID STIMULATING HORMONE 1.28 uIU/ML (0.358-3.740)
[2021-11-23 11:09] LABS: FOLATE 5.1 NG/ML (>5.4)
== END ==
LOC: M LAB 07:21
PROVIDERS: ATTEND Psychiatry & Neurology Neurology
DX: E03.9 Hypothyroidism, unspecified (principal); R41.3 Other amnesia; E53.8 Deficiency of other specified B group vitamins

== ENCOUNTER → 2021-11-23 | Outpatient (CLI) | payer MEDICARE ==
[2021-11-23 08:08] LABS: HEMATOCRIT 43.8 % (42.0-52.0); HEMOGLOBIN 15.3 g/dl (13.5-17.5); MEAN CORPUSCULAR HEMOGLOBIN 31.1 pg (27.0-33.0); MEAN CORPUSCULAR HGB CONC 34.9 g/dl (32.0-36.5); PLATELET COUNT, AUTOMATED 169 10^3/uL (150-450); RED BLOOD COUNT 4.92 10^6/uL (4.30-6.10); WHITE BLOOD COUNT 5.1 10^3/uL (4.0-10.0)
[2021-11-23 08:46] LABS: ALBUMIN 3.6 GM/DL (3.2-5.2); BILIRUBIN,TOTAL 0.7 MG/DL (0.2-1.0); CHOLESTEROL RISK RATIO 3.42 (<5); CREATININE FOR GFR 1.26 MG/DL (0.70-1.30); GLOMERULAR FILTRATION RATE 59.7 (>42); POTASSIUM SERUM 4.6 MEQ/L (3.5-5.1); PROSTATIC SPECIFIC AG MONITOR 0.38 NG/ML (< 4.00); THYROID STIMULATING HORMONE 1.26 uIU/ML (0.358-3.740); TOTAL PROTEIN 7.2 GM/DL (6.4-8.2)
[2021-11-23 09:10] LABS: HEMOGLOBIN A1c 5.2 %
== END ==
LOC: M LAB 07:19
PROVIDERS: ATTEND Family Medicine
DX: E03.9 Hypothyroidism, unspecified (principal); I10 Essential (primary) hypertension; R97.20 Elevated prostate specific antigen [PSA]; E11.9 Type 2 diabetes mellitus without complications

== ENCOUNTER → 2021-11-25 | Outpatient (REF) | payer MEDICARE ==
[2021-11-25 18:00] LABS: APPEARANCE, URINE CLEAR (CLEAR); BACTERIA, URINE AUTO NEGATIVE (NEGATIVE); BILIRUBIN, URINE AUTO NEGATIVE (NEGATIVE); BLOOD, URINE BLOOD NEGATIVE (NEGATIVE); COLOR, URINE YELLOW (YELLOW); GLUCOSE, URINE (UA) AUTO NEGATIVE (NEGATIVE); KETONE, URINE AUTO NEGATIVE (NEGATIVE); LEUKOCYTE ESTERASE, URINE AUTO NEGATIVE (NEGATIVE); MUCUS, URINE SMALL (NEGATIVE); NITRITE, URINE AUTO NEGATIVE (NEGATIVE); PROTEIN, URINE AUTO NEGATIVE (NEGATIVE); RBC, URINE AUTO 0 /HPF (0-3); SPECIFIC GRAVITY URINE AUTO 1.017 (1.002-1.035); SQUAMOUS EPITHELIAL CELL UR AU 0 /HPF (0-6); UROBILINOGEN, URINE AUTO 0.2 mg/dL (0.0-2.0); WBC, URINE AUTO 0 /HPF (0-3)
== END ==
LOC: M SMT 17:03
PROVIDERS: ATTEND Urology
DX: R39.9 Unspecified symptoms and signs involving the genitourinary system (principal)

== ENCOUNTER 2022-03-31 08:23 | Emergency (ER) | payer MEDICARE ==
[~2022-03-31] VITALS: Ht 182.9 cm; Wt 113.6 kg
[2022-03-31] MEDS ORDERED: ATOR1TAB21 (08:33)
[2022-03-31] MEDS ORDERED: FOLI1TAB11 (08:33)
[2022-03-31] MEDS ORDERED: CLOP75TA2 (08:33)
[2022-03-31] MEDS ORDERED: TAMS1CAP17 (08:33)
[2022-03-31] MEDS ORDERED: LOSA50TA28 (08:33)
[2022-03-31] MEDS ORDERED: DONE10TA90 (08:33)
[2022-03-31] MEDS ORDERED: METO1TAB87 (08:33)
[2022-03-31] MEDS ORDERED: MYRB50TA (08:33)
[2022-03-31 09:35] LABS: BASO # 0.1 10^3/uL (0.0-0.2); EOS # 0.1 10^3/uL (0.0-0.5); EOS % 1.7 % (0.0-3.0); HEMATOCRIT 45.1 % (42.0-52.0); HEMOGLOBIN 15.7 g/dl (13.5-17.5); LYMPH # 2.1 10^3/uL (1.5-5.0); LYMPH % 29.4 % (24.0-44.0); MEAN CORPUSCULAR HGB CONC 34.8 g/dl (32.0-36.5); MEAN CORPUSCULAR VOLUME 89.1 fl (80.0-96.0); MONO # 0.5 10^3/uL (0.0-0.8); MONO % 6.8 % (2.0-8.0); NEUTROPHILS # 4.3 10^3/uL (1.5-8.5); NEUTROPHILS % 60.8 % (36.0-66.0); PLATELET COUNT, AUTOMATED 174 10^3/uL (150-450); RED BLOOD COUNT 5.06 10^6/uL (4.30-6.10)
[2022-03-31 09:42] LABS: INR 0.9; PROTHROMBIN TIME 12.5 SECONDS (12.7-14.5)
[2022-03-31 09:57] LABS: CK-MB VALUE MASS 2.2 NG/ML (<3.6); MB/CK RELATIVE INDEX 1.73 (< OR =4)
[2022-03-31 10:05] LABS: ALBUMIN 3.5 GM/DL (3.2-5.2); ALT/SGPT 33 U/L (12-78); BILIRUBIN,DIRECT 0.1 MG/DL (0.0-0.2); BILIRUBIN,TOTAL 0.4 MG/DL (0.2-1.0); BLOOD UREA NITROGEN 20 MG/DL (7-18); CALCIUM LEVEL 9.6 MG/DL (8.8-10.2); CARBON DIOXIDE LEVEL 28 MEQ/L (21-32); CHLORIDE LEVEL 106 MEQ/L (98-107); CREATININE FOR GFR 1.22 MG/DL (0.70-1.30); FREE T4 1.04 NG/DL (0.76-1.46); GLOMERULAR FILTRATION RATE > 60.0 (>42); GLUCOSE, FASTING 110 MG/DL (70-100); LIPASE 139 U/L (73-393); NT-PRO BNP 169 PG/ML (<125); POTASSIUM SERUM 4.7 MEQ/L (3.5-5.1); SODIUM LEVEL 141 MEQ/L (136-145); TOTAL PROTEIN 7.3 GM/DL (6.4-8.2)
[2022-03-31 10:58] LABS: CK-MB VALUE MASS 1.6 NG/ML (<3.6); MB/CK RELATIVE INDEX 1.32 (< OR =4)
[2022-03-31 11:00] VITALS: BP 131/76
[2022-03-31] MEDS ORDERED: ISOVUE-370 76% 100ML VIAL As Ordered ONE (11:00)
[2022-03-31 12:52] LABS: CK-MB VALUE MASS 1.9 NG/ML (<3.6); MB/CK RELATIVE INDEX 1.81 (< OR =4)
== END 2022-03-31 13:58 | disposition home or self-care (01) ==
LOC: M ED 08:23
DX: R07.89 Other chest pain (principal); I10 Essential (primary) hypertension; I25.10 Atherosclerotic heart disease of native coronary artery without angina pectoris; E78.9 Disorder of lipoprotein metabolism, unspecified; Z95.5 Presence of coronary angioplasty implant and graft; Z87.442 Personal history of urinary calculi; Z79.899 Other long term (current) drug therapy; Z79.01 Long term (current) use of anticoagulants
CPT/HCPCS: 36415; 71045; 71275; 80048; 80076; 82550; 82553; 83690; 83880; 84439; 84443; 84484; 85025; 85610; 93005; 93041; 94760; 99285; Q9967

== ENCOUNTER → 2022-07-10 | Outpatient (CLI) | payer MEDICARE ==
[~2022-07-10] MED LIST changes: +ATOR1TAB21; +CLOP75TA2; +DONE10TA90; +FOLI1TAB11; +LOSA50TA28; +METO1TAB87; +MYRB50TA; +TAMS1CAP17
[2022-07-10 08:57] LABS: HEMATOCRIT 43.6 % (42.0-52.0); HEMOGLOBIN 15.5 g/dl (13.5-17.5); MEAN CORPUSCULAR HEMOGLOBIN 31.7 pg (27.0-33.0); MEAN CORPUSCULAR HGB CONC 35.6 g/dl (32.0-36.5); MEAN CORPUSCULAR VOLUME 89.2 fl (80.0-96.0); PLATELET COUNT, AUTOMATED 156 10^3/uL (150-450); RED BLOOD COUNT 4.89 10^6/uL (4.30-6.10); WHITE BLOOD COUNT 5.4 10^3/uL (4.0-10.0)
[2022-07-10 09:35] LABS: ALBUMIN 3.7 GM/DL (3.2-5.2); BILIRUBIN,TOTAL 0.9 MG/DL (0.2-1.0); CALCIUM LEVEL 9.3 MG/DL (8.8-10.2); CHOLESTEROL RISK RATIO 3.408 (<5); CREATININE FOR GFR 1.27 MG/DL (0.70-1.30); PROSTATIC SPECIFIC AG MONITOR 0.43 NG/ML (< 4.00); THYROID STIMULATING HORMONE 1.11 uIU/ML (0.358-3.740); TOTAL PROTEIN 6.9 GM/DL (6.4-8.2)
[2022-07-10 11:19] LABS: HEMOGLOBIN A1c 5.4 %
== END ==
LOC: M LAB 08:37
PROVIDERS: ATTEND Family Medicine
DX: I10 Essential (primary) hypertension (principal); R53.83 Other fatigue; E03.9 Hypothyroidism, unspecified; Z79.899 Other long term (current) drug therapy

== ENCOUNTER → 2022-12-11 | Outpatient (CLI) | payer MEDICARE ==
[2022-12-11 09:56] LABS: HEMATOCRIT 44.3 % (42.0-52.0); HEMOGLOBIN 15.3 g/dl (13.5-17.5); MEAN CORPUSCULAR HEMOGLOBIN 30.8 pg (27.0-33.0); MEAN CORPUSCULAR HGB CONC 34.5 g/dl (32.0-36.5); MEAN CORPUSCULAR VOLUME 89.1 fl (80.0-96.0); PLATELET COUNT, AUTOMATED 158 10^3/uL (150-450); RED BLOOD COUNT 4.97 10^6/uL (4.30-6.10); WHITE BLOOD COUNT 5.4 10^3/uL (4.0-10.0)
[2022-12-11 10:29] LABS: ALBUMIN 3.6 G/DL (3.2-5.2); ALKALINE PHOSPHATASE 94 U/L (46-116); ALT/SGPT 40 U/L (7.0-40); AST/SGOT 37 U/L (<34); BILIRUBIN,TOTAL 0.6 MG/DL (0.3-1.2); BLOOD UREA NITROGEN 21 MG/DL (9-23); CALCIUM LEVEL 8.2 MG/DL (8.3-10.6); CARBON DIOXIDE LEVEL 23 MMOL/L (20-31); CHLORIDE LEVEL 105 MMOL/L (98-107); CHOLESTEROL LEVEL 156 MG/DL (<200); CHOLESTEROL RISK RATIO 3.75 (<5); CREATININE FOR GFR 1.03 MG/DL (0.70-1.30); GLOMERULAR FILTRATION RATE > 60.0 (>42); GLUCOSE, FASTING 99 MG/DL (74-106); HDL CHOLESTEROL 41.5 MG/DL (>40); LDL CHOLESTEROL 90.7 MG/DL (<100); NON-HDL-C 115 MG/DL; POTASSIUM SERUM 4.7 MMOL/L (3.5-5.1); SODIUM LEVEL 139 MMOL/L (136-145); TRIGLYCERIDES LEVEL 119 MG/DL (<150)
[2022-12-11 10:33] LABS: TESTOSTERONE 174 NG/DL (241-827); THYROID STIMULATING HORMONE 1.657 uIU/ML (0.55-4.78); TOTAL 25(OH) VITAMIN D 35.6 NG/ML (20.0-100.0)
[2022-12-11 11:09] LABS: PROSTATIC SPECIFIC AG MONITOR 0.37 NG/ML (< 4.00)
[2022-12-11 11:11] LABS: HEMOGLOBIN A1c 5.2 % (4.0-6.0)
== END ==
LOC: M LAB 08:29
PROVIDERS: ATTEND Family Medicine
DX: I10 Essential (primary) hypertension (principal); R53.83 Other fatigue; Z79.899 Other long term (current) drug therapy

== ENCOUNTER → 2023-08-28 | Outpatient (CLI) | payer MEDICARE ==
[2023-08-28 12:53] LABS: CREATININE FOR GFR 1.27 MG/DL (0.70-1.30); GLOMERULAR FILTRATION RATE 58.9 (>42)
== END ==
LOC: M LAB 11:45
PROVIDERS: ATTEND Physician Assistant
DX: I65.23 Occlusion and stenosis of bilateral carotid arteries (principal)

== ENCOUNTER 2023-09-24 19:00 | Inpatient (IN) | payer MEDICARE ==
[~2023-09-24] VITALS: Ht 182.9 cm; Wt 116.8 kg
[~2023-09-24 19:00] MED LIST changes: -ATOR1TAB21; +ATOR1TAB21 PO; -CLOP75TA2; +CLOP75TA2 PO; -DONE10TA90; +DONE10TA90 PO; -FOLI1TAB11; +FOLI1TAB11 PO; -LOSA50TA28; +LOSA50TA28 PO; -METO1TAB87; +METO1TAB87 PO; -MYRB50TA; +MYRB50TA PO; -TAMS1CAP17; +TAMS1CAP17 PO
[2023-09-24] MEDS ORDERED: ONDANSETRON 4MG 2ML VIAL IV ONE (19:20)
[2023-09-24 19:41] LABS: BASO % 0.3 % (0.0-1.0); EOS % 0.2 % (0.0-3.0); HEMATOCRIT 43.2 % (42.0-52.0); HEMOGLOBIN 15.3 g/dl (13.5-17.5); LYMPH # 1.8 10^3/uL (1.5-5.0); LYMPH % 13.8 % (24.0-44.0); MEAN CORPUSCULAR HEMOGLOBIN 31.4 pg (27.0-33.0); MEAN CORPUSCULAR HGB CONC 35.4 g/dl (32.0-36.5); MEAN CORPUSCULAR VOLUME 88.7 fl (80.0-96.0); MONO # 0.8 10^3/uL (0.0-0.8); MONO % 6.4 % (2.0-8.0); NEUTROPHILS % 79.1 % (36.0-66.0); PLATELET COUNT, AUTOMATED 147 10^3/uL (150-450); RED BLOOD COUNT 4.87 10^6/uL (4.30-6.10); WHITE BLOOD COUNT 12.7 10^3/uL (4.0-10.0)
[2023-09-24] MEDS ORDERED: METOCLOPRAMIDE INJ 10MG/2ML VIAL IV ONE (20:00)
[2023-09-24 20:15] LABS: LIPASE 20 U/L (12-53)
[2023-09-24 20:17] LABS: ALBUMIN 3.2 G/DL (3.2-5.2); ALKALINE PHOSPHATASE 85 U/L (46-116); ALT/SGPT 24 U/L (7.0-40); AST/SGOT 52 U/L (<34); BILIRUBIN,TOTAL 0.9 MG/DL (0.3-1.2); BLOOD UREA NITROGEN 24 MG/DL (9-23); CALCIUM LEVEL 8.6 MG/DL (8.3-10.6); CARBON DIOXIDE LEVEL 27 MMOL/L (20-31); CHLORIDE LEVEL 105 MMOL/L (98-107); CREATININE FOR GFR 1.13 MG/DL (0.70-1.30); GLOMERULAR FILTRATION RATE > 60.0 (>42); GLUCOSE, FASTING 110 MG/DL (74-106); POTASSIUM SERUM 3.8 MMOL/L (3.5-5.1); SODIUM LEVEL 141 MMOL/L (136-145); TOTAL PROTEIN 6.7 G/DL (5.7-8.2)
[2023-09-24 20:21] LABS: CPK CREATINE PHOSPHOKINASE 1289 U/L (46-171); MB/CK RELATIVE INDEX 0.38 (< OR =4)
[2023-09-24] MEDS ORDERED: ISOVUE-370 76% 100ML VIAL As Ordered ONE (21:00)
[2023-09-24] MEDS ORDERED: cefTRIAXone SOD 1 GM in D5W MINI-BAG PLUS 50 ML IV ONE (22:40)
[2023-09-24] MEDS ORDERED: AZITHROMYCIN INJ 500 MG, VIAL MATE ADAPTER 1 EACH in NS 250 ML IV ONE (22:40)
[2023-09-24] MEDS ORDERED: NS 1,000 ML IV ONE (23:20)
[2023-09-25] MEDS ORDERED: SOLI10TA PO (00:45)
[2023-09-25] MEDS ORDERED: CARB25TA9 PO (00:45)
[2023-09-25] MEDS ORDERED: MEMA21CA2 PO (00:45)
[2023-09-25] MEDS ORDERED: VITA-55 PO (00:47)
[2023-09-25] MEDS ORDERED: VITA100093 PO (00:47)
[2023-09-25] MEDS ORDERED: NITR4TASL SL (00:47)
[2023-09-25] MEDS ORDERED: ASPI81TA26 PO (00:47)
[2023-09-25] MEDS ORDERED: HOME MED LIST COMPLETE! XX SCH (00:50)
[2023-09-25] MEDS ORDERED: PILL CUTTER 1 EACH XX PRN (02:40)
[2023-09-25 03:20] VITALS: BP 135/83; TEMP 98.1; O2SAT 96
[2023-09-25] MEDS: HEPARIN SOD (PORCINE) 5000UNITS/ML 1ML VIAL/SYRINGE SC SCH ×3 (05:50→21:47)
[2023-09-25 06:00] VITALS: BP 138/82; TEMP 97.9; O2SAT 95
[2023-09-25 06:53] LABS: BLOOD UREA NITROGEN 22 MG/DL (9-23); CALCIUM LEVEL 7.9 MG/DL (8.3-10.6); CARBON DIOXIDE LEVEL 24 MMOL/L (20-31); CHLORIDE LEVEL 107 MMOL/L (98-107); CREATININE FOR GFR 1.07 MG/DL (0.70-1.30); GLOMERULAR FILTRATION RATE > 60.0 (>42); GLUCOSE, FASTING 105 MG/DL (74-106); POTASSIUM SERUM 3.7 MMOL/L (3.5-5.1); SODIUM LEVEL 141 MMOL/L (136-145)
[2023-09-25 06:57] LABS: THYROID STIMULATING HORMONE 1.732 uIU/ML (0.55-4.78); TOTAL 25(OH) VITAMIN D 34.3 NG/ML (20.0-100.0)
[2023-09-25] MEDS: CLOPIDOGREL 75 MG TAB PO SCH (09:47)
[2023-09-25] MEDS: TAMSULOSIN 0.4 MG CAP PO SCH ×2 (09:47→21:45)
[2023-09-25] MEDS: DOXYCYCLINE HYCLATE 100MG TABLET PO SCH ×2 (09:47→21:46)
[2023-09-25] MEDS: ESCITALOPRAM OXALATE 5MG TABLET (LEXAPRO) PO SCH (09:47)
[2023-09-25] MEDS: ASPIRIN 81MG ENTERIC TABLET PO SCH (09:47)
[2023-09-25] MEDS: LOSARTAN 50MG TABLET PO SCH ×2 (09:48→21:46)
[2023-09-25 10:45] LABS: CPK CREATINE PHOSPHOKINASE 762 U/L (46-171)
[2023-09-25] MEDS: LR 1,000 ML IV SCH ×2 (11:00→17:23)
[2023-09-25 14:00] VITALS: BP 133/74; TEMP 98.6; O2SAT 91
[2023-09-25] MEDS: ACETAMINOPHEN TAB 650MG DOSE (2X325MG) PO PRN ×2 (15:08→21:48)
[2023-09-25 20:15] VITALS: BP 133/72; TEMP 98.1; O2SAT 96
[2023-09-25] MEDS ORDERED: cefTRIAXone SOD 1 GM in D5W MINI-BAG PLUS 50 ML IV SCH (21:00)
[2023-09-25] MEDS: EZETIMIBE 10MG TABLET (ZETIA) PO SCH (21:45)
[2023-09-25] MEDS: METOPROLOL TART 12.5 MG PER 1/2 TAB PO SCH (21:46)
[2023-09-26] MEDS: LR 1,000 ML IV SCH ×2 (01:28→07:39)
[2023-09-26] MEDS: HEPARIN SOD (PORCINE) 5000UNITS/ML 1ML VIAL/SYRINGE SC SCH ×3 (05:35→20:23)
[2023-09-26 05:55] VITALS: BP 181/85; TEMP 98.1; O2SAT 95
[2023-09-26 06:07] VITALS: BP 180/95
[2023-09-26 06:54] LABS: BLOOD UREA NITROGEN 17 MG/DL (9-23); CALCIUM LEVEL 7.7 MG/DL (8.3-10.6); CARBON DIOXIDE LEVEL 26 MMOL/L (20-31); CHLORIDE LEVEL 104 MMOL/L (98-107); CREATININE FOR GFR 0.95 MG/DL (0.70-1.30); GLOMERULAR FILTRATION RATE > 60.0 (>42); GLUCOSE, FASTING 98 MG/DL (74-106); MAGNESIUM LEVEL 1.8 MG/DL (1.8-2.4); POTASSIUM SERUM 3.6 MMOL/L (3.5-5.1); SODIUM LEVEL 138 MMOL/L (136-145)
[2023-09-26] MEDS: LOSARTAN 50MG TABLET PO SCH ×2 (07:32→20:24)
[2023-09-26 07:47] LABS: BASO % 0.5 % (0.0-1.0); EOS # 0.1 10^3/uL (0.0-0.5); EOS % 1.1 % (0.0-3.0); HEMATOCRIT 38.1 % (42.0-52.0); LYMPH # 1.3 10^3/uL (1.5-5.0); LYMPH % 20.9 % (24.0-44.0); MEAN CORPUSCULAR HEMOGLOBIN 31.2 pg (27.0-33.0); MEAN CORPUSCULAR HGB CONC 34.9 g/dl (32.0-36.5); MEAN CORPUSCULAR VOLUME 89.4 fl (80.0-96.0); MONO # 0.4 10^3/uL (0.0-0.8); NEUTROPHILS # 4.4 10^3/uL (1.5-8.5); NEUTROPHILS % 71.2 % (36.0-66.0); PLATELET COUNT, AUTOMATED 123 10^3/uL (150-450); RED BLOOD COUNT 4.26 10^6/uL (4.30-6.10); WHITE BLOOD COUNT 6.2 10^3/uL (4.0-10.0)
[2023-09-26 07:52] LABS: HEMOGLOBIN 13.3 g/dl (13.5-17.5)
[2023-09-26] MEDS: ASPIRIN 81MG ENTERIC TABLET PO SCH (08:40)
[2023-09-26] MEDS: DOXYCYCLINE HYCLATE 100MG TABLET PO SCH ×2 (08:40→20:24)
[2023-09-26] MEDS: CLOPIDOGREL 75 MG TAB PO SCH (08:40)
[2023-09-26] MEDS: ESCITALOPRAM OXALATE 5MG TABLET (LEXAPRO) PO SCH (08:40)
[2023-09-26] MEDS: TAMSULOSIN 0.4 MG CAP PO SCH ×2 (08:40→20:23)
[2023-09-26 08:42] VITALS: BP 171/83
[2023-09-26 14:00] VITALS: BP 160/82; TEMP 98.8; O2SAT 95
[2023-09-26 14:49] VITALS: BP 130/80
[2023-09-26] MEDS: cefTRIAXone SOD 2 GM in D5W MINI-BAG PLUS 50 ML IV SCH (15:34)
[2023-09-26] MEDS ORDERED: ISOVUE-370 76% 100ML VIAL As Ordered ONE (15:48)
[2023-09-26] MEDS: EZETIMIBE 10MG TABLET (ZETIA) PO SCH (20:24)
[2023-09-26] MEDS: ACETAMINOPHEN TAB 650MG DOSE (2X325MG) PO PRN (20:24)
[2023-09-26] MEDS: METOPROLOL TART 12.5 MG PER 1/2 TAB PO SCH (20:25)
[2023-09-26 21:22] VITALS: BP 162/92; TEMP 98.4; O2SAT 96
[2023-09-27] MEDS ORDERED: CALCIUM CARBONATE 500 MG CHEW U/D PO ONE (04:00)
[2023-09-27 06:06] LABS: BASO % 0.5 % (0.0-1.0); EOS # 0.1 10^3/uL (0.0-0.5); EOS % 1.5 % (0.0-3.0); HEMATOCRIT 38.9 % (42.0-52.0); HEMOGLOBIN 13.5 g/dl (13.5-17.5); LYMPH # 1.6 10^3/uL (1.5-5.0); MEAN CORPUSCULAR HGB CONC 34.7 g/dl (32.0-36.5); MEAN CORPUSCULAR VOLUME 89.2 fl (80.0-96.0); MONO # 0.5 10^3/uL (0.0-0.8); MONO % 8.5 % (2.0-8.0); NEUTROPHILS # 3.8 10^3/uL (1.5-8.5); PLATELET COUNT, AUTOMATED 148 10^3/uL (150-450); RED BLOOD COUNT 4.36 10^6/uL (4.30-6.10)
[2023-09-27] MEDS: HEPARIN SOD (PORCINE) 5000UNITS/ML 1ML VIAL/SYRINGE SC SCH ×3 (06:21→21:33)
[2023-09-27 06:25] VITALS: BP 170/90; TEMP 97.9; O2SAT 96
[2023-09-27 06:36] LABS: BLOOD UREA NITROGEN 14 MG/DL (9-23); CALCIUM LEVEL 8.3 MG/DL (8.3-10.6); CARBON DIOXIDE LEVEL 25 MMOL/L (20-31); CHLORIDE LEVEL 102 MMOL/L (98-107); CREATININE FOR GFR 0.94 MG/DL (0.70-1.30); GLOMERULAR FILTRATION RATE > 60.0 (>42); GLUCOSE, FASTING 100 MG/DL (74-106); MAGNESIUM LEVEL 1.8 MG/DL (1.8-2.4); POTASSIUM SERUM 3.6 MMOL/L (3.5-5.1); SODIUM LEVEL 135 MMOL/L (136-145)
[2023-09-27 07:46] VITALS: BP 142/83
[2023-09-27] MEDS: TAMSULOSIN 0.4 MG CAP PO SCH ×2 (09:00→21:36)
[2023-09-27] MEDS: CLOPIDOGREL 75 MG TAB PO SCH (09:23)
[2023-09-27] MEDS: LOSARTAN 50MG TABLET PO SCH ×2 (09:23→21:36)
[2023-09-27] MEDS: ESCITALOPRAM OXALATE 5MG TABLET (LEXAPRO) PO SCH (09:23)
[2023-09-27] MEDS: ASPIRIN 81MG ENTERIC TABLET PO SCH (09:23)
[2023-09-27] MEDS: DOXYCYCLINE HYCLATE 100MG TABLET PO SCH ×2 (09:25→21:35)
[2023-09-27 10:25] LABS: PROCALCITONIN 0.29 ng/ml
[2023-09-27 13:36] VITALS: BP 152/94; TEMP 97.9; O2SAT 97
[2023-09-27] MEDS: cefTRIAXone SOD 2 GM in D5W MINI-BAG PLUS 50 ML IV SCH (14:34)
[2023-09-27 21:05] VITALS: BP 168/80
[2023-09-27 21:27] VITALS: TEMP 97.4; O2SAT 96
[2023-09-27] MEDS: EZETIMIBE 10MG TABLET (ZETIA) PO SCH (21:34)
[2023-09-27] MEDS: METOPROLOL TART 12.5 MG PER 1/2 TAB PO SCH (21:34)
[2023-09-28] MEDS ORDERED: CALCIUM CARBONATE 500 MG CHEW U/D PO ONE (04:00)
[2023-09-28] MEDS: HEPARIN SOD (PORCINE) 5000UNITS/ML 1ML VIAL/SYRINGE SC SCH ×3 (06:06→22:35)
[2023-09-28 06:25] LABS: BASO % 0.5 % (0.0-1.0); EOS # 0.1 10^3/uL (0.0-0.5); EOS % 1.2 % (0.0-3.0); HEMATOCRIT 38.7 % (42.0-52.0); HEMOGLOBIN 13.8 g/dl (13.5-17.5); LYMPH % 27.7 % (24.0-44.0); MEAN CORPUSCULAR HEMOGLOBIN 31.2 pg (27.0-33.0); MEAN CORPUSCULAR HGB CONC 35.7 g/dl (32.0-36.5); MEAN CORPUSCULAR VOLUME 87.4 fl (80.0-96.0); MONO # 0.6 10^3/uL (0.0-0.8); MONO % 7.8 % (2.0-8.0); NEUTROPHILS # 4.5 10^3/uL (1.5-8.5); NEUTROPHILS % 62.4 % (36.0-66.0); PLATELET COUNT, AUTOMATED 162 10^3/uL (150-450); RED BLOOD COUNT 4.43 10^6/uL (4.30-6.10); WHITE BLOOD COUNT 7.3 10^3/uL (4.0-10.0)
[2023-09-28 06:49] VITALS: BP 158/66; TEMP 98.1; O2SAT 96
[2023-09-28 06:54] LABS: BLOOD UREA NITROGEN 16 MG/DL (9-23); CALCIUM LEVEL 8.4 MG/DL (8.3-10.6); CARBON DIOXIDE LEVEL 24 MMOL/L (20-31); CHLORIDE LEVEL 101 MMOL/L (98-107); CREATININE FOR GFR 0.97 MG/DL (0.70-1.30); GLOMERULAR FILTRATION RATE > 60.0 (>42); GLUCOSE, FASTING 103 MG/DL (74-106); MAGNESIUM LEVEL 1.7 MG/DL (1.8-2.4); POTASSIUM SERUM 3.8 MMOL/L (3.5-5.1); SODIUM LEVEL 136 MMOL/L (136-145)
[2023-09-28] MEDS: TAMSULOSIN 0.4 MG CAP PO SCH ×2 (08:19→22:36)
[2023-09-28] MEDS: DOXYCYCLINE HYCLATE 100MG TABLET PO SCH (08:19)
[2023-09-28] MEDS: ASPIRIN 81MG ENTERIC TABLET PO SCH (08:19)
[2023-09-28 08:49] VITALS: BP 141/79; TEMP 97.7
[2023-09-28] MEDS: LOSARTAN 50MG TABLET PO SCH ×2 (10:37→22:37)
[2023-09-28] MEDS: CLOPIDOGREL 75 MG TAB PO SCH (10:38)
[2023-09-28] MEDS: ESCITALOPRAM OXALATE 5MG TABLET (LEXAPRO) PO SCH (10:38)
[2023-09-28] MEDS: ACETAMINOPHEN TAB 650MG DOSE (2X325MG) PO PRN ×3 (13:57→22:44)
[2023-09-28 14:01] VITALS: BP 140/81; TEMP 97.9
[2023-09-28] MEDS ORDERED: MIRALAX *UNIT DOSE* 17GM PACKET PO PRN (14:15)
[2023-09-28] MEDS ORDERED: SENNA 8.6 MG TAB (SENOKOT) PO PRN (14:15)
[2023-09-28] MEDS: cefTRIAXone SOD 2 GM in D5W MINI-BAG PLUS 50 ML IV SCH (14:41)
[2023-09-28 21:52] VITALS: BP 145/81; TEMP 97.9; O2SAT 96
[2023-09-28 22:28] VITALS: BP 141/79
[2023-09-28] MEDS: METOPROLOL TART 12.5 MG PER 1/2 TAB PO SCH (22:36)
[2023-09-28] MEDS: EZETIMIBE 10MG TABLET (ZETIA) PO SCH (22:36)
[2023-09-29] MEDS: HEPARIN SOD (PORCINE) 5000UNITS/ML 1ML VIAL/SYRINGE SC SCH ×3 (05:59→21:20)
[2023-09-29] MEDS: ACETAMINOPHEN TAB 650MG DOSE (2X325MG) PO PRN ×2 (06:07→15:13)
[2023-09-29 06:17] LABS: BASO % 0.5 % (0.0-1.0); EOS # 0.1 10^3/uL (0.0-0.5); EOS % 1.5 % (0.0-3.0); HEMATOCRIT 39.6 % (42.0-52.0); HEMOGLOBIN 14.2 g/dl (13.5-17.5); LYMPH # 1.5 10^3/uL (1.5-5.0); LYMPH % 24.7 % (24.0-44.0); MEAN CORPUSCULAR HEMOGLOBIN 31.3 pg (27.0-33.0); MEAN CORPUSCULAR HGB CONC 35.9 g/dl (32.0-36.5); MEAN CORPUSCULAR VOLUME 87.4 fl (80.0-96.0); MONO # 0.5 10^3/uL (0.0-0.8); MONO % 8.8 % (2.0-8.0); NEUTROPHILS # 3.8 10^3/uL (1.5-8.5); NEUTROPHILS % 63.8 % (36.0-66.0); PLATELET COUNT, AUTOMATED 153 10^3/uL (150-450); RED BLOOD COUNT 4.53 10^6/uL (4.30-6.10); WHITE BLOOD COUNT 5.9 10^3/uL (4.0-10.0)
[2023-09-29 06:25] VITALS: BP 151/82; TEMP 98.1; O2SAT 96
[2023-09-29 06:46] LABS: BLOOD UREA NITROGEN 19 MG/DL (9-23); CALCIUM LEVEL 8.4 MG/DL (8.3-10.6); CARBON DIOXIDE LEVEL 26 MMOL/L (20-31); CHLORIDE LEVEL 103 MMOL/L (98-107); CREATININE FOR GFR 0.95 MG/DL (0.70-1.30); GLOMERULAR FILTRATION RATE > 60.0 (>42); GLUCOSE, FASTING 103 MG/DL (74-106); MAGNESIUM LEVEL 1.9 MG/DL (1.8-2.4); POTASSIUM SERUM 3.7 MMOL/L (3.5-5.1); SODIUM LEVEL 138 MMOL/L (136-145)
[2023-09-29] MEDS: ASPIRIN 81MG ENTERIC TABLET PO SCH (09:25)
[2023-09-29] MEDS: LOSARTAN 50MG TABLET PO SCH ×2 (09:26→21:19)
[2023-09-29] MEDS: TAMSULOSIN 0.4 MG CAP PO SCH ×2 (09:27→21:19)
[2023-09-29] MEDS: CLOPIDOGREL 75 MG TAB PO SCH (09:30)
[2023-09-29] MEDS: ESCITALOPRAM OXALATE 5MG TABLET (LEXAPRO) PO SCH (09:31)
[2023-09-29 10:15] VITALS: BP 152/82; TEMP 97.9; O2SAT 96
[2023-09-29 14:08] VITALS: BP 139/76; TEMP 97.8; O2SAT 95
[2023-09-29] MEDS: EZETIMIBE 10MG TABLET (ZETIA) PO SCH (21:18)
[2023-09-29] MEDS: METOPROLOL TART 12.5 MG PER 1/2 TAB PO SCH (21:19)
[2023-09-29 21:24] VITALS: BP 138/81; TEMP 97.9; O2SAT 96
[2023-09-30] MEDS: HEPARIN SOD (PORCINE) 5000UNITS/ML 1ML VIAL/SYRINGE SC SCH ×3 (05:44→21:02)
[2023-09-30 06:40] VITALS: BP 132/80; TEMP 97.9; O2SAT 97
[2023-09-30] MEDS: ACETAMINOPHEN TAB 650MG DOSE (2X325MG) PO PRN ×2 (07:39→17:53)
[2023-09-30] MEDS: TAMSULOSIN 0.4 MG CAP PO SCH ×2 (08:29→21:02)
[2023-09-30] MEDS: ASPIRIN 81MG ENTERIC TABLET PO SCH (08:29)
[2023-09-30] MEDS: ESCITALOPRAM OXALATE 5MG TABLET (LEXAPRO) PO SCH (08:29)
[2023-09-30] MEDS: LOSARTAN 50MG TABLET PO SCH ×2 (08:40→21:02)
[2023-09-30] MEDS: CLOPIDOGREL 75 MG TAB PO SCH (08:41)
[2023-09-30 20:17] VITALS: BP 134/74; TEMP 97.7; O2SAT 97
[2023-09-30] MEDS: METOPROLOL TART 12.5 MG PER 1/2 TAB PO SCH (21:01)
[2023-09-30] MEDS: EZETIMIBE 10MG TABLET (ZETIA) PO SCH (21:01)
[2023-10-01] MEDS: HEPARIN SOD (PORCINE) 5000UNITS/ML 1ML VIAL/SYRINGE SC SCH ×3 (05:21→21:21)
[2023-10-01] MEDS: ASPIRIN 81MG ENTERIC TABLET PO SCH (08:47)
[2023-10-01] MEDS: ESCITALOPRAM OXALATE 5MG TABLET (LEXAPRO) PO SCH (08:47)
[2023-10-01] MEDS: CLOPIDOGREL 75 MG TAB PO SCH (08:47)
[2023-10-01] MEDS: LOSARTAN 50MG TABLET PO SCH ×2 (08:48→21:21)
[2023-10-01] MEDS: TAMSULOSIN 0.4 MG CAP PO SCH ×2 (08:48→21:20)
[2023-10-01] MEDS: ACETAMINOPHEN TAB 650MG DOSE (2X325MG) PO PRN (15:52)
[2023-10-01] MEDS: EZETIMIBE 10MG TABLET (ZETIA) PO SCH (21:22)
[2023-10-01] MEDS: METOPROLOL TART 12.5 MG PER 1/2 TAB PO SCH (21:22)
[2023-10-02] MEDS: HEPARIN SOD (PORCINE) 5000UNITS/ML 1ML VIAL/SYRINGE SC SCH (05:40)
[2023-10-02 05:59] VITALS: BP 132/74; TEMP 97.9; O2SAT 96
[2023-10-02] MEDS: ESCITALOPRAM OXALATE 5MG TABLET (LEXAPRO) PO SCH (08:45)
[2023-10-02] MEDS: TAMSULOSIN 0.4 MG CAP PO SCH (08:45)
[2023-10-02] MEDS: ASPIRIN 81MG ENTERIC TABLET PO SCH (08:45)
[2023-10-02] MEDS: CLOPIDOGREL 75 MG TAB PO SCH (08:45)
[2023-10-02 08:46] VITALS: BP 132/72
[2023-10-02] MEDS: LOSARTAN 50MG TABLET PO SCH (08:46)
[2023-10-02] MEDS ORDERED: LEXA5TAB13 PO (12:02)
[2023-10-02] MEDS ORDERED: VITA1CHW7 PO (12:11)
== END 2023-10-02 13:30 | DRG 57 ==
LOC: M ED 19:00 → EDBD 19:00 → M ED INP 09-25 01:02 → M MS5PR 09-25 02:20
PROVIDERS: ADMIT Internal Medicine; ATTEND Internal Medicine
DX: G31.83 Neurocognitive disorder with Lewy bodies (principal); M62.82 Rhabdomyolysis; N40.1 Benign prostatic hyperplasia with lower urinary tract symptoms; I10 Essential (primary) hypertension; R11.10 Vomiting, unspecified; R45.84 Anhedonia; I65.23 Occlusion and stenosis of bilateral carotid arteries; I25.10 Atherosclerotic heart disease of native coronary artery without angina pectoris; E78.00 Pure hypercholesterolemia, unspecified; Z96.653 Presence of artificial knee joint, bilateral; Z96.649 Presence of unspecified artificial hip joint; F02.80 Dementia in other diseases classified elsewhere, unspecified severity, without behavioral disturbance, psychotic disturbance, mood disturbance, and anxiety; F32.A Depression, unspecified; Z79.82 Long term (current) use of aspirin; Z79.899 Other long term (current) drug therapy; Z20.822 Contact with and (suspected) exposure to COVID-19

== ENCOUNTER → 2024-03-09 | Outpatient (CLI) | payer MEDICARE ==
[~2024-03-09] MED LIST changes: +ASPI81TA26 PO; +CARB25TA9 PO; +LEXA5TAB13 PO; +MEMA21CA PO; +NITR4TASL SL; +SOLI10TA PO; +VITA-55 PO; +VITA100093 PO; +VITA1CHW7 PO
[2024-03-09 08:48] LABS: HEMATOCRIT 43.4 % (42.0-52.0); HEMOGLOBIN 15.2 g/dl (13.5-17.5); MEAN CORPUSCULAR HEMOGLOBIN 31.3 pg (27.0-33.0); MEAN CORPUSCULAR VOLUME 89.5 fl (80.0-96.0); PLATELET COUNT, AUTOMATED 159 10^3/uL (150-450); RED BLOOD COUNT 4.85 10^6/uL (4.30-6.10); WHITE BLOOD COUNT 6.6 10^3/uL (4.0-10.0)
[2024-03-09 09:17] LABS: HEMOGLOBIN A1c 5.4 % (4.0-6.0)
[2024-03-09 09:21] LABS: ALBUMIN 3.6 G/DL (3.2-5.2); ALKALINE PHOSPHATASE 90 U/L (46-116); ALT/SGPT 38 U/L (7.0-40); AST/SGOT 24 U/L (<34); BILIRUBIN,TOTAL 0.6 MG/DL (0.3-1.2); BLOOD UREA NITROGEN 28 MG/DL (9-23); CALCIUM LEVEL 9.1 MG/DL (8.3-10.6); CARBON DIOXIDE LEVEL 27 MMOL/L (20-31); CHLORIDE LEVEL 107 MMOL/L (98-107); CHOLESTEROL LEVEL 181 MG/DL (<200); CHOLESTEROL RISK RATIO 4.45 (<5); CREATININE FOR GFR 1.09 MG/DL (0.70-1.30); GLOMERULAR FILTRATION RATE > 60.0 (>42); GLUCOSE, FASTING 103 MG/DL (74-106); HDL CHOLESTEROL 40.6 MG/DL (>40); LDL CHOLESTEROL 115.4 MG/DL (<100); NON-HDL-C 140.4 MG/DL; POTASSIUM SERUM 4.3 MMOL/L (3.5-5.1); PROSTATIC SPECIFIC AG MONITOR 0.32 NG/ML (< 4.00); SODIUM LEVEL 140 MMOL/L (136-145); TRIGLYCERIDES LEVEL 125 MG/DL (<150)
[2024-03-09 09:25] LABS: THYROID STIMULATING HORMONE 1.333 uIU/ML (0.55-4.78); TOTAL 25(OH) VITAMIN D 36.6 NG/ML (20.0-100.0)
[2024-03-09 09:26] LABS: TESTOSTERONE 116 NG/DL (241-827)
== END ==
LOC: M LAB 08:18
PROVIDERS: ATTEND Family Medicine
DX: I10 Essential (primary) hypertension (principal); R53.83 Other fatigue; E03.9 Hypothyroidism, unspecified; N40.1 Benign prostatic hyperplasia with lower urinary tract symptoms; Z79.899 Other long term (current) drug therapy

== ENCOUNTER → 2024-03-19 | Outpatient (CLI) | payer MEDICARE | LOC: M RAD 10:19 | PROVIDERS: ATTEND Surgery Vascular Surgery | DX: I65.23 Occlusion and stenosis of bilateral carotid arteries (principal) ==

== ENCOUNTER 2024-07-11 13:09 | Observation (INO) | payer MEDICARE ==
[~2024-07-11] VITALS: Ht 182.9 cm; Wt 119.3 kg
[2024-07-11 14:27] LABS: BASO % 0.5 % (0.0-1.0); HEMATOCRIT 43.2 % (42.0-52.0); LYMPH # 1.8 10^3/uL (1.5-5.0); LYMPH % 45.3 % (24.0-44.0); MEAN CORPUSCULAR HEMOGLOBIN 31.4 pg (27.0-33.0); MEAN CORPUSCULAR HGB CONC 34.7 g/dl (32.0-36.5); MEAN CORPUSCULAR VOLUME 90.6 fl (80.0-96.0); MONO # 0.4 10^3/uL (0.0-0.8); MONO % 10.9 % (2.0-8.0); NEUTROPHILS # 1.7 10^3/uL (1.5-8.5); PLATELET COUNT, AUTOMATED 128 10^3/uL (150-450); RED BLOOD COUNT 4.77 10^6/uL (4.30-6.10); WHITE BLOOD COUNT 3.9 10^3/uL (4.0-10.0)
[2024-07-11 14:40] LABS: ALBUMIN 3.4 G/DL (3.2-5.2); ALKALINE PHOSPHATASE 85 U/L (46-116); ALT/SGPT 36 U/L (7.0-40); AST/SGOT 32 U/L (<34); BILIRUBIN,DIRECT 0.1 MG/DL (<0.4); BILIRUBIN,TOTAL 0.4 MG/DL (0.3-1.2); BLOOD UREA NITROGEN 20 MG/DL (9-23); CALCIUM LEVEL 8.6 MG/DL (8.3-10.6); CARBON DIOXIDE LEVEL 27 MMOL/L (20-31); CHLORIDE LEVEL 108 MMOL/L (98-107); CREATININE FOR GFR 1.13 MG/DL (0.70-1.30); GLOMERULAR FILTRATION RATE > 60.0 (>42); GLUCOSE, FASTING 110 MG/DL (74-106); POTASSIUM SERUM 3.6 MMOL/L (3.5-5.1); SODIUM LEVEL 141 MMOL/L (136-145); TOTAL PROTEIN 6.9 G/DL (5.7-8.2)
[2024-07-11 14:42] LABS: THYROXINE (T4) 8.1 UG/DL (4.5-10.9)
[2024-07-11 14:43] LABS: THYROID STIMULATING HORMONE 2.247 uIU/ML (0.55-4.78)
[2024-07-11 15:52] LABS: PROCALCITONIN 0.08 ng/ml
[2024-07-11] MEDS ORDERED: HOME MED LIST COMPLETE! XX SCH (16:45)
[2024-07-11] MEDS ORDERED: NITROGLYCERIN 0.4MG SUBL TABLET SL PRN (17:45)
[2024-07-11] MEDS: REMDESIVIR 200 MG in NS 250 ML IV ONE (18:00)
[2024-07-11 21:00] VITALS: BP 152/90; TEMP 97.9; O2SAT 95
[2024-07-11] MEDS: TAMSULOSIN 0.4 MG CAP PO SCH (21:00)
[2024-07-11] MEDS: MEMANTINE 5MG TABLET (NAMENDA) PO SCH (21:00)
[2024-07-12 03:30] VITALS: BP 134/70; TEMP 98.1; O2SAT 96
[2024-07-12 05:42] LABS: HEMATOCRIT 43.5 % (42.0-52.0); HEMOGLOBIN 14.7 g/dl (13.5-17.5); MEAN CORPUSCULAR HEMOGLOBIN 30.9 pg (27.0-33.0); MEAN CORPUSCULAR HGB CONC 33.8 g/dl (32.0-36.5); MEAN CORPUSCULAR VOLUME 91.4 fl (80.0-96.0); PLATELET COUNT, AUTOMATED 127 10^3/uL (150-450); RED BLOOD COUNT 4.76 10^6/uL (4.30-6.10); WHITE BLOOD COUNT 4.7 10^3/uL (4.0-10.0)
[2024-07-12 06:04] LABS: BLOOD UREA NITROGEN 23 MG/DL (9-23); CALCIUM LEVEL 8.3 MG/DL (8.3-10.6); CARBON DIOXIDE LEVEL 25 MMOL/L (20-31); CHLORIDE LEVEL 110 MMOL/L (98-107); CREATININE FOR GFR 1.07 MG/DL (0.70-1.30); GLOMERULAR FILTRATION RATE > 60.0 (>42); GLUCOSE, FASTING 102 MG/DL (74-106); POTASSIUM SERUM 3.9 MMOL/L (3.5-5.1); SODIUM LEVEL 141 MMOL/L (136-145)
[2024-07-12] MEDS: FOLIC ACID 1MG TAB PO SCH (09:08)
[2024-07-12] MEDS: VITAMIN E 400 INTERNATIONAL UNITS CAP PO SCH (09:08)
[2024-07-12] MEDS: CLOPIDOGREL 75 MG TAB PO SCH (09:08)
[2024-07-12] MEDS: ATORVASTATIN 20 MG TAB PO SCH (09:08)
[2024-07-12] MEDS: DONEPEZIL 5 MG TAB PO SCH (09:08)
[2024-07-12] MEDS: ESCITALOPRAM OXALATE 5MG TABLET (LEXAPRO) PO SCH (09:08)
[2024-07-12] MEDS: ASPIRIN 81MG ENTERIC TABLET PO SCH (09:09)
[2024-07-12] MEDS: ENOXAPARIN 40MG/0.4ML SYRINGE (J1650 PER 10MG) SC SCH (09:09)
[2024-07-12 12:04] VITALS: BP 130/73; TEMP 97.9; O2SAT 93
[2024-07-12] MEDS: REMDESIVIR 100 MG in NS 250 ML IV SCH (17:11)
[2024-07-12 20:00] VITALS: BP 137/79; TEMP 98.1; O2SAT 92
[2024-07-13 01:11] VITALS: O2SAT 83
[2024-07-13 01:15] VITALS: O2SAT 95
[2024-07-13 04:00] VITALS: BP 130/70; TEMP 98.1; O2SAT 95
[2024-07-13 12:39] VITALS: BP 164/94; TEMP 97.7; O2SAT 93
[2024-07-13 13:35] LABS: BASO % 0.2 % (0.0-1.0); EOS # 0.1 10^3/uL (0.0-0.5); EOS % 1.1 % (0.0-3.0); HEMATOCRIT 42.4 % (42.0-52.0); HEMOGLOBIN 14.9 g/dl (13.5-17.5); LYMPH # 2.2 10^3/uL (1.5-5.0); LYMPH % 48.9 % (24.0-44.0); MEAN CORPUSCULAR HEMOGLOBIN 31.6 pg (27.0-33.0); MEAN CORPUSCULAR HGB CONC 35.1 g/dl (32.0-36.5); MONO # 0.3 10^3/uL (0.0-0.8); NEUTROPHILS # 1.9 10^3/uL (1.5-8.5); NEUTROPHILS % 42.8 % (36.0-66.0); PLATELET COUNT, AUTOMATED 126 10^3/uL (150-450); RED BLOOD COUNT 4.71 10^6/uL (4.30-6.10); WHITE BLOOD COUNT 4.4 10^3/uL (4.0-10.0)
[2024-07-13] MEDS: REMDESIVIR 100 MG in NS 250 ML IV ONE (13:41)
[2024-07-13 13:53] LABS: BLOOD UREA NITROGEN 27 MG/DL (9-23); CALCIUM LEVEL 8.4 MG/DL (8.3-10.6); CARBON DIOXIDE LEVEL 25 MMOL/L (20-31); CHLORIDE LEVEL 110 MMOL/L (98-107); CREATININE FOR GFR 1.09 MG/DL (0.70-1.30); GLOMERULAR FILTRATION RATE > 60.0 (>42); GLUCOSE, FASTING 114 MG/DL (74-106); POTASSIUM SERUM 3.8 MMOL/L (3.5-5.1); SODIUM LEVEL 141 MMOL/L (136-145)
[2024-07-13] MEDS: PANTOPRAZOLE 40MG TAB (PROTONIX) PO ONE (15:59)
[2024-07-14 04:31] VITALS: BP 159/95; TEMP 98.8; O2SAT 96
[2024-07-14 06:06] LABS: HEMATOCRIT 39.8 % (42.0-52.0); HEMOGLOBIN 13.7 g/dl (13.5-17.5); MEAN CORPUSCULAR HEMOGLOBIN 30.9 pg (27.0-33.0); MEAN CORPUSCULAR HGB CONC 34.4 g/dl (32.0-36.5); MEAN CORPUSCULAR VOLUME 89.6 fl (80.0-96.0); PLATELET COUNT, AUTOMATED 122 10^3/uL (150-450); RED BLOOD COUNT 4.44 10^6/uL (4.30-6.10)
[2024-07-14] MEDS: PANTOPRAZOLE 40MG TAB (PROTONIX) PO SCH (09:32)
[2024-07-14] MEDS: RIVAROXABAN 10MG TAB (XARELTO) PO SCH (18:35)
[2024-07-14 19:51] VITALS: BP 144/86; TEMP 98.8; O2SAT 96
[2024-07-15 03:54] VITALS: BP 158/78; TEMP 98.2; O2SAT 97
[2024-07-15] MEDS: LOSARTAN 50MG TABLET PO ONE (10:41)
[2024-07-16 03:35] VITALS: BP 138/78; TEMP 97.9; O2SAT 96
[2024-07-16] MEDS: LOSARTAN 50MG TABLET PO SCH (09:34)
[2024-07-16 20:30] VITALS: BP 129/70; TEMP 98.6; O2SAT 96
[2024-07-16] MEDS: RAMELTEON 8 MG TAB (ROZEREM) PO PRN (20:35)
[2024-07-17 04:00] VITALS: BP 127/70; TEMP 98.2; O2SAT 96
[2024-07-17 06:04] LABS: HEMATOCRIT 41.1 % (42.0-52.0); MEAN CORPUSCULAR HEMOGLOBIN 30.8 pg (27.0-33.0); MEAN CORPUSCULAR HGB CONC 34.1 g/dl (32.0-36.5); MEAN CORPUSCULAR VOLUME 90.3 fl (80.0-96.0); PLATELET COUNT, AUTOMATED 162 10^3/uL (150-450); RED BLOOD COUNT 4.55 10^6/uL (4.30-6.10); WHITE BLOOD COUNT 6.3 10^3/uL (4.0-10.0)
[2024-07-17 09:38] VITALS: BP 125/70
[2024-07-17] MEDS ORDERED: PANT40TA29 PO (12:14)
== END 2024-07-17 15:14 | disposition home or self-care (01) ==
LOC: EDBD 13:09 → M ED 13:09 → INTOOBSV 15:11 → M ED INP 15:11 → M MSPAV 20:33
PROVIDERS: ADMIT Internal Medicine; ATTEND Hospitalist
DX: U07.1 COVID-19 (principal); J40 Bronchitis, not specified as acute or chronic; I25.10 Atherosclerotic heart disease of native coronary artery without angina pectoris; Z98.61 Coronary angioplasty status; I65.29 Occlusion and stenosis of unspecified carotid artery; F39 Unspecified mood [affective] disorder; F03.90 Unspecified dementia, unspecified severity, without behavioral disturbance, psychotic disturbance, mood disturbance, and anxiety; D61.818 Other pancytopenia; N40.0 Benign prostatic hyperplasia without lower urinary tract symptoms; R06.02 Shortness of breath; R53.1 Weakness; Z79.899 Other long term (current) drug therapy; Z79.82 Long term (current) use of aspirin; Z79.02 Long term (current) use of antithrombotics/antiplatelets
CPT/HCPCS: 36415; 71045; 80048; 80076; 84145; 84436; 84443; 85025; 85027; 87426; 93005; 93041; 94760; 96365; 96366; 96372; 96376; 97116; 97161; 97165; 97530; 97535; 99285; G0378; J0248; J1650

== ENCOUNTER → 2024-10-07 | Outpatient (CLI) | payer MEDICARE ==
[~2024-10-07] MED LIST changes: +PANT40TA29 PO
== END ==
LOC: M RAD 12:58
PROVIDERS: ATTEND Physician Assistant
DX: I65.29 Occlusion and stenosis of unspecified carotid artery (principal)

== ENCOUNTER → 2024-12-08 | Outpatient (CLI) | payer MEDICARE ==
[~2024-12-08] MED LIST changes: +HYDR-161 PO; +LEXA1TAB PO; +VITA200021 PO
[2024-12-08 10:22] LABS: HEMATOCRIT 43.4 % (42.0-52.0); HEMOGLOBIN 15.2 g/dl (13.5-17.5); MEAN CORPUSCULAR VOLUME 88.6 fl (80.0-96.0); PLATELET COUNT, AUTOMATED 173 10^3/uL (150-450); WHITE BLOOD COUNT 6.1 10^3/uL (4.0-10.0)
[2024-12-08 10:45] LABS: HEMOGLOBIN A1c 5.4 % (4.0-6.0)
[2024-12-08 10:51] LABS: PROSTATIC SPECIFIC AG MONITOR 0.29 NG/ML (< 4.00)
[2024-12-08 10:53] LABS: ALBUMIN 3.4 G/DL (3.2-5.2); ALKALINE PHOSPHATASE 88 U/L (40-129); ALT/SGPT 31 U/L (7.0-40); AST/SGOT 21 U/L (<34); BILIRUBIN,TOTAL 0.7 MG/DL (0.3-1.2); BLOOD UREA NITROGEN 25 MG/DL (9-23); CALCIUM LEVEL 8.9 MG/DL (8.3-10.6); CARBON DIOXIDE LEVEL 25 MMOL/L (20-31); CHLORIDE LEVEL 111 MMOL/L (98-107); GLOMERULAR FILTRATION RATE > 60.0 (>42); GLUCOSE, FASTING 107 MG/DL (74-106); POTASSIUM SERUM 4.2 MMOL/L (3.5-5.1); SODIUM LEVEL 144 MMOL/L (136-145); TOTAL PROTEIN 6.9 G/DL (5.7-8.2)
[2024-12-08 10:55] LABS: THYROID STIMULATING HORMONE 1.358 uIU/ML (0.55-4.78)
[2024-12-08 10:56] LABS: TESTOSTERONE 111 NG/DL (241-827)
== END ==
LOC: M LAB 09:52
PROVIDERS: ATTEND Family Medicine
DX: R53.83 Other fatigue (principal); I10 Essential (primary) hypertension; E03.9 Hypothyroidism, unspecified; R97.20 Elevated prostate specific antigen [PSA]

== ENCOUNTER 2024-12-10 19:41 | Observation (INO) | payer MEDICARE ==
[~2024-12-10 19:41] MED LIST changes: -HYDR-161 PO; -LEXA1TAB PO; -VITA200021 PO
[2024-12-10 20:36] LABS: BASO # 0.1 10^3/uL (0.0-0.2); BASO % 0.7 % (0.0-1.0); EOS # 0.2 10^3/uL (0.0-0.5); EOS % 2.5 % (0.0-3.0); HEMATOCRIT 41.3 % (42.0-52.0); HEMOGLOBIN 14.3 g/dl (13.5-17.5); LYMPH # 2.9 10^3/uL (1.5-5.0); LYMPH % 42.3 % (24.0-44.0); MEAN CORPUSCULAR HEMOGLOBIN 31.3 pg (27.0-33.0); MEAN CORPUSCULAR HGB CONC 34.6 g/dl (32.0-36.5); MEAN CORPUSCULAR VOLUME 90.4 fl (80.0-96.0); MONO # 0.5 10^3/uL (0.0-0.8); NEUTROPHILS # 3.1 10^3/uL (1.5-8.5); NEUTROPHILS % 46.2 % (36.0-66.0); PLATELET COUNT, AUTOMATED 162 10^3/uL (150-450); RED BLOOD COUNT 4.57 10^6/uL (4.30-6.10); WHITE BLOOD COUNT 6.8 10^3/uL (4.0-10.0)
[2024-12-10] MEDS: ONDANSETRON 4MG 2ML VIAL IV ONE (20:49)
[2024-12-10 21:54] LABS: ALBUMIN 3.5 G/DL (3.2-5.2); ALKALINE PHOSPHATASE 89 U/L (40-129); ALT/SGPT 30 U/L (7.0-40); AST/SGOT 23 U/L (<34); BILIRUBIN,DIRECT < 0.1 MG/DL (<0.4); BILIRUBIN,TOTAL 0.4 MG/DL (0.3-1.2); BLOOD UREA NITROGEN 27 MG/DL (9-23); CALCIUM LEVEL 9.1 MG/DL (8.3-10.6); CARBON DIOXIDE LEVEL 30 MMOL/L (20-31); CHLORIDE LEVEL 107 MMOL/L (98-107); GLOMERULAR FILTRATION RATE > 60.0 (>42); GLUCOSE, FASTING 93 MG/DL (74-106); POTASSIUM SERUM 4.5 MMOL/L (3.5-5.1); SODIUM LEVEL 143 MMOL/L (136-145); TOTAL PROTEIN 7.2 G/DL (5.7-8.2)
[2024-12-10 21:56] LABS: THYROID STIMULATING HORMONE 1.942 uIU/ML (0.55-4.78)
[2024-12-10 21:59] LABS: CPK CREATINE PHOSPHOKINASE 140 U/L (46-171); MB/CK RELATIVE INDEX 1.42 (< OR =4)
[2024-12-10] MEDS: NS (Normal Saline) 0.9% 1,000 ML IV ONE (22:37)
[2024-12-11 00:55] LABS: KETONE, URINE AUTO RFX NEGATIVE (NEGATIVE); LEUKOCYTE ESTERASE UR AUTO RFX NEGATIVE (NEGATIVE); NITRITE, URINE AUTO RFX NEGATIVE (NEGATIVE); RBC, URINE AUTO RFX 1 /HPF (0-3); SQUAM EPITHELIAL CELL UR AURFX 0 /HPF (0-6); WBC, URINE AUTO RFX 2 /HPF (0-3)
[2024-12-11] MEDS ORDERED: ISOVUE-370 76% 100ML VIAL As Ordered ONE (05:08)
[2024-12-11] MEDS ORDERED: VITA200021 PO (05:24)
[2024-12-11] MEDS ORDERED: LEXA1TAB PO (05:24)
[2024-12-11] MEDS ORDERED: HOME MED LIST COMPLETE! XX SCH (05:25)
[2024-12-11] MEDS: ATORVASTATIN 20 MG TAB PO SCH (09:27)
[2024-12-11] MEDS: ASPIRIN 81MG ENTERIC TABLET PO SCH (09:27)
[2024-12-11] MEDS: CLOPIDOGREL 75 MG TAB PO SCH (09:27)
[2024-12-11 15:55] VITALS: BP 147/74; TEMP 97.8; O2SAT 94
[2024-12-11 20:14] VITALS: BP 159/72; TEMP 96.8; O2SAT 94
[2024-12-11 20:15] VITALS: BP_SYST 159; BP_SYST 163; BP_SYST 168; BP_DIAS 72; BP_DIAS 80; BP_DIAS 95
[2024-12-11] MEDS: MEMANTINE 5MG TABLET (NAMENDA) PO SCH (20:45)
[2024-12-11] MEDS: TAMSULOSIN 0.4 MG CAP PO SCH (20:45)
[2024-12-11 23:55] VITALS: BP 154/80; TEMP 96.8; O2SAT 95
[2024-12-12 03:58] VITALS: BP 152/90; TEMP 97; O2SAT 97
[2024-12-12 04:03] VITALS: BP_SYST 158; BP_SYST 170; BP_DIAS 84; BP_DIAS 95
[2024-12-12 07:24] VITALS: BP 150/82; TEMP 98.3; O2SAT 94
[2024-12-12 07:56] LABS: CHOLESTEROL RISK RATIO 4.64 (<5); HDL CHOLESTEROL 32.7 MG/DL (>40); LDL CHOLESTEROL 98.7 MG/DL (<100); MAGNESIUM LEVEL 1.9 MG/DL (1.8-2.4); NON-HDL-C 119.3 MG/DL
[2024-12-12 08:00] LABS: TOTAL 25(OH) VITAMIN D 42.1 NG/ML (20.0-100.0)
[2024-12-12] MEDS: LOSARTAN 50MG TABLET PO SCH (09:18)
[2024-12-12] MEDS: **hydrALAZINE** 10 MG TAB PO SCH (09:19)
[2024-12-12] MEDS: VITAMIN E 400 INTERNATIONAL UNITS CAP PO SCH (09:19)
[2024-12-12] MEDS: DONEPEZIL 5 MG TAB PO SCH (09:19)
[2024-12-12] MEDS: ESCITALOPRAM OXALATE 10 MG TAB (LEXAPRO) PO SCH (09:19)
[2024-12-12] MEDS: FOLIC ACID 1MG TAB PO SCH (09:19)
[2024-12-12 16:11] VITALS: BP 145/72; TEMP 98; O2SAT 95
[2024-12-12] MEDS: ACETAMINOPHEN 650MG ER TAB (TYLENOL ARTHRITIS) PO PRN (18:38)
[2024-12-12 20:28] VITALS: BP 146/72; TEMP 97.1; O2SAT 94
[2024-12-13 00:23] VITALS: BP 124/76; TEMP 97.7; O2SAT 93
[2024-12-13 04:00] VITALS: BP 135/75; TEMP 97.7; O2SAT 94
[2024-12-13 10:00] VITALS: BP 131/75; TEMP 97.5; O2SAT 97
[2024-12-13] MEDS: THIAMINE 100 MG TAB PO ONE (10:05)
[2024-12-14 04:00] VITALS: BP 141/86; TEMP 97.9; O2SAT 99
[2024-12-15 04:00] VITALS: BP 137/79; TEMP 97.5; O2SAT 97
[2024-12-15] MEDS: NYSTATIN CREAM 15GM TOP SCH (09:00)
[2024-12-16 04:46] VITALS: BP 144/85; TEMP 97.5; O2SAT 95
[2024-12-16] MEDS ORDERED: HYDR-161 PO (13:54)
[2024-12-16 16:21] VITALS: BP 132/72
== END 2024-12-16 17:35 | disposition home health service (06) ==
LOC: EDBD 19:41 → M ED 19:41 → M ED INP 12-11 05:11 → INTOOBSV 12-11 05:11 → M PCU 12-11 15:41 → M MS5PR 12-13 00:08
PROVIDERS: ADMIT Student in an Organized Health Care Education/Training Program; ATTEND Student in an Organized Health Care Education/Training Program
DX: R42 Dizziness and giddiness (principal); I65.23 Occlusion and stenosis of bilateral carotid arteries; I10 Essential (primary) hypertension; R11.2 Nausea with vomiting, unspecified; F03.90 Unspecified dementia, unspecified severity, without behavioral disturbance, psychotic disturbance, mood disturbance, and anxiety; Z86.73 Personal history of transient ischemic attack (TIA), and cerebral infarction without residual deficits; R25.1 Tremor, unspecified; R25.8 Other abnormal involuntary movements; M79.9 Soft tissue disorder, unspecified; I25.10 Atherosclerotic heart disease of native coronary artery without angina pectoris; Z95.5 Presence of coronary angioplasty implant and graft; I95.1 Orthostatic hypotension; Z86.16 Personal history of COVID-19; E78.5 Hyperlipidemia, unspecified; K21.9 Gastro-esophageal reflux disease without esophagitis; N40.0 Benign prostatic hyperplasia without lower urinary tract symptoms; F39 Unspecified mood [affective] disorder; Z79.899 Other long term (current) drug therapy; Z79.82 Long term (current) use of aspirin; Z79.02 Long term (current) use of antithrombotics/antiplatelets; R53.83 Other fatigue; E03.9 Hypothyroidism, unspecified
CPT/HCPCS: 36415; 70450; 70496; 70498; 70551; 71046; 80047; 80048; 80053; 80061; 80076; 81001; 82306; 82550; 82553; 82607; 83036; 83735; 84153; 84403; 84425; 84443; 84484; 85025; 85027; 87486; 87581; 87633; 87798; 93005; 93041; 94760; 96361; 96374; 97116; 97161; 97165; 97530; 97535; 99285; G0378; J2405; Q9967

== ENCOUNTER 2025-02-01 12:40 | Emergency (ER) | payer MEDICARE ==
[~2025-02-01] VITALS: Ht 167.6 cm; Wt 121.4 kg
[~2025-02-01 12:40] MED LIST changes: +HYDR-161 PO; +LEXA1TAB PO; +VITA200021 PO
[2025-02-01 12:47] VITALS: TEMP 99.8
[2025-02-01 14:22] LABS: BASO # 0.1 10^3/uL (0.0-0.2); BASO % 0.5 % (0.0-1.0); EOS # 0.1 10^3/uL (0.0-0.5); EOS % 0.7 % (0.0-3.0); HEMATOCRIT 41.5 % (42.0-52.0); HEMOGLOBIN 14.4 g/dl (13.5-17.5); LYMPH # 1.5 10^3/uL (1.5-5.0); LYMPH % 15.1 % (24.0-44.0); MEAN CORPUSCULAR HEMOGLOBIN 31.6 pg (27.0-33.0); MEAN CORPUSCULAR HGB CONC 34.7 g/dl (32.0-36.5); MONO # 0.6 10^3/uL (0.0-0.8); MONO % 6.4 % (2.0-8.0); NEUTROPHILS # 7.4 10^3/uL (1.5-8.5); PLATELET COUNT, AUTOMATED 147 10^3/uL (150-450); RED BLOOD COUNT 4.56 10^6/uL (4.30-6.10); WHITE BLOOD COUNT 9.6 10^3/uL (4.0-10.0)
[2025-02-01 14:46] LABS: BLOOD UREA NITROGEN 21 MG/DL (9-23); CALCIUM LEVEL 8.7 MG/DL (8.3-10.6); CARBON DIOXIDE LEVEL 24 MMOL/L (20-31); CHLORIDE LEVEL 106 MMOL/L (98-107); CREATININE FOR GFR 1.09 MG/DL (0.70-1.30); GLOMERULAR FILTRATION RATE > 60.0 (>42); GLUCOSE, FASTING 102 MG/DL (74-106); POTASSIUM SERUM 4.2 MMOL/L (3.5-5.1); SODIUM LEVEL 140 MMOL/L (136-145)
[2025-02-01 15:30] VITALS: BP 129/75
[2025-02-01 15:55] VITALS: O2SAT 95
== END 2025-02-01 16:12 | disposition home or self-care (01) ==
LOC: M ED 12:40
DX: R53.1 Weakness (principal); B34.1 Enterovirus infection, unspecified; K21.9 Gastro-esophageal reflux disease without esophagitis; I25.119 Atherosclerotic heart disease of native coronary artery with unspecified angina pectoris; Z79.1 Long term (current) use of non-steroidal anti-inflammatories (NSAID); Z79.899 Other long term (current) drug therapy

== ENCOUNTER → 2025-07-17 | Outpatient (REF) | payer MEDICARE ==
[2025-07-22 20:02] LABS: TESTOSTERONE FREE (DIRECT) 21.6 pg/mL (30.0-135.0); TESTOSTERONE TOTAL FOR T&D 146.0 ng/dL (250-1100)
== END ==
LOC: M LAB REF 12:18
PROVIDERS: ATTEND Internal Medicine
DX: E29.1 Testicular hypofunction (principal)

== ENCOUNTER 2025-09-01 07:37 | Day surgery (SDC) | payer MEDICARE ==
[~2025-09-01] VITALS: Ht 182.9 cm; Wt 121.6 kg
[~2025-09-01 07:37] MED LIST changes: +LR 1,000 ML IV SCH; +MIDAZOLAM INJ 2 MG/2 ML VIAL As Ordered ONE
[2025-09-01] MEDS: PHENYLEPHRINE 2.5% OPHTH SOL 2ML OD SCH (08:06)
[2025-09-01] MEDS: FLURBIPROFEN 0.03% OPHTH SOLN 2.5 ML OD SCH (08:06)
[2025-09-01] MEDS: CYCLOPENTOLATE 1% OPHTH SOLN 2 ML BTL OD SCH (08:06)
[2025-09-01] MEDS: TETRACAINE 0.5% OPHTH SOLN 4ML OD SCH (08:06)
[2025-09-01] MEDS: LIDOCAINE 1% SDV 5 ML VIAL As Ordered ONE (08:35)
[2025-09-01] MEDS: CEFUROXIME 1 MG/0.1 ML INTRACAMERAL INJ As Ordered ONE (08:40)
[2025-09-01 08:55] VITALS: BP 139/70; TEMP 97.2; O2SAT 94
== END 2025-09-01 09:15 | disposition home or self-care (01) ==
LOC: M SDC 07:37
PROVIDERS: ATTEND Ophthalmology
DX: H25.11 Age-related nuclear cataract, right eye (principal); I10 Essential (primary) hypertension; I25.10 Atherosclerotic heart disease of native coronary artery without angina pectoris; I69.354 Hemiplegia and hemiparesis following cerebral infarction affecting left non-dominant side; E78.00 Pure hypercholesterolemia, unspecified; Z95.5 Presence of coronary angioplasty implant and graft; N40.0 Benign prostatic hyperplasia without lower urinary tract symptoms; Z79.02 Long term (current) use of antithrombotics/antiplatelets; Z79.899 Other long term (current) drug therapy; Z79.82 Long term (current) use of aspirin; Z85.828 Personal history of other malignant neoplasm of skin
CPT/HCPCS: 66984; J0697; J2250; J3010; V2632

== ENCOUNTER 2025-09-29 06:38 | Day surgery (SDC) | payer MEDICARE ==
[~2025-09-29] VITALS: Ht 182.9 cm; Wt 122.0 kg
[~2025-09-29 06:38] MED LIST changes: -LR 1,000 ML IV SCH; -MIDAZOLAM INJ 2 MG/2 ML VIAL As Ordered ONE
[2025-09-29] MEDS ORDERED: LR 1,000 ML IV SCH (07:00)
[2025-09-29] MEDS ORDERED: MIDAZOLAM INJ 2 MG/2 ML VIAL As Ordered ONE (07:02)
[2025-09-29] MEDS: FLURBIPROFEN 0.03% OPHTH SOLN 2.5 ML OS SCH (07:29)
[2025-09-29] MEDS: CYCLOPENTOLATE 1% OPHTH SOLN 2 ML BTL OS SCH (07:29)
[2025-09-29] MEDS: PHENYLEPHRINE 2.5% OPHTH SOL 2ML OS SCH (07:29)
[2025-09-29] MEDS: TETRACAINE 0.5% OPHTH SOLN 4ML OS SCH (07:29)
[2025-09-29] MEDS: CEFUROXIME 1 MG/0.1 ML INTRACAMERAL INJ As Ordered ONE (08:44)
[2025-09-29] MEDS: LIDOCAINE 1% SDV 5 ML VIAL As Ordered ONE (08:44)
[2025-09-29 09:09] VITALS: BP 120/81; TEMP 97.1; O2SAT 96
== END 2025-09-29 09:23 | disposition home or self-care (01) ==
LOC: M SDC 06:38
PROVIDERS: ATTEND Ophthalmology
DX: H25.12 Age-related nuclear cataract, left eye (principal); I25.10 Atherosclerotic heart disease of native coronary artery without angina pectoris; I10 Essential (primary) hypertension; I25.2 Old myocardial infarction; E78.00 Pure hypercholesterolemia, unspecified; I69.354 Hemiplegia and hemiparesis following cerebral infarction affecting left non-dominant side; Z79.899 Other long term (current) drug therapy; Z79.02 Long term (current) use of antithrombotics/antiplatelets; Z79.82 Long term (current) use of aspirin; Z95.5 Presence of coronary angioplasty implant and graft; N40.0 Benign prostatic hyperplasia without lower urinary tract symptoms; Z98.41 Cataract extraction status, right eye; Z85.828 Personal history of other malignant neoplasm of skin
CPT/HCPCS: 66984; J0697; J2250; J3010; V2632